=== PATIENT | female | born 1990 | race Caucasian/White ===

== ENCOUNTER 2016-11-26 15:27 | Emergency (ER) | payer OTHER ==
[~2016-11-26 15:27] MED LIST: TRAM50TA PO
[2016-11-26 15:54] VITALS: BP 110/59
[2016-11-26 16:03] LABS: BASO % 1 % (0-3); BILIRUBIN,URINE NEGATIVE (NEG); EOS % 2 % (0-3); GLUCOSE,URINE NEGATIVE (NEG); HEMATOCRIT 33.2 % (36.0-47.0); HEMOGLOBIN 10.3 g/dL (12.0-15.5); LYMPH % 37 % (24-48); MEAN CORPUSCULAR HEMOGLOBIN 24 pg (25-35); MEAN CORPUSCULAR HGB CONC 31 g/dL (31-37); MEAN CORPUSCULAR VOLUME 76 fL (79-100); MONO % 10 % (0-9); NEUT % 51 % (31-73); NITRITE,URINE NEGATIVE (NEG); PH,URINE 6.5; PLATELET COUNT 262 x10^3/uL (140-400); PROTEIN,URINE NEGATIVE (NEG-TRACE); RED BLOOD COUNT 4.39 x10^6/uL (3.50-5.40); RED CELL DISTRIBUTION WIDTH 17.5 % (11.5-14.5); UROBILINOGEN,URINE 0.2 mg/dL (0.2 mg/dL); WHITE BLOOD COUNT 5.5 x10^3/uL (4.0-11.0)
[2016-11-26 16:10] LABS: BACTERIA,URINE MANY /HPF (0-FEW); RBC,URINE 0 /HPF (0-2); SQUAMOUS EPITHELIAL CELL,UR MANY /LPF
[2016-11-26] MEDS ORDERED: FENTANYL PF 100 MCG/2 ML VIAL. IV ONE ×2 (16:15→16:30)
--- NOTE | 2016-11-26 16:20 | PHYS DOC ---
Past Medical History Past Medical History: No Pertinent History Past Surgical History: Tonsillectomy, Other Additional Past Surgical Histo: cleft palate repair Alcohol Use: None Drug Use: None Adult General Chief Complaint Chief Complaint: ABDOMINAL PAIN HPI HPI Patient is a 26 year old female presents to emergency department stating that she is having generalized abdominal pain and discomfort for the last 3 days. She states that she went to her primary care physician yesterday in which she's been treated for staph on her face. She states that she mentioned this to her doctor and he had obtained blood work as well as informing her to come to the emergency department the pain became worse. Patient denies any fever, chills or any nausea or vomiting. She does state that she has some pain with urination. She also states her last bowel movement was 2 days ago. She states that she was currently taking doxycycline for her staph infection. Review of Systems Review of Systems Constitutional: Denies fever or chills [] Eyes: Denies change in visual acuity, redness, or eye pain [] HENT: Denies nasal congestion or sore throat [] Respiratory: Denies cough or shortness of breath [] Cardiovascular: No additional information not addressed in HPI [] GI: abdominal pain, denies nausea, vomiting, bloody stools or diarrhea [] : Denies dysuria or hematuria [] Musculoskeletal: Denies back pain or joint pain [] Integument: Denies rash or skin lesions [] Neurologic: Denies headache, focal weakness or sensory changes [] Current Medications Current Medications Current Medications Medications (Trade) Dose Ordered Sig/Ruby Start Time Stop Time Status Last Admin Dose Admin Fentanyl Citrate (Fentanyl 2ml Vial) 25 mcg 1X ONCE 11/26/16 16:30 11/26/16 16:31 DC 11/26/16 16:17 25 MCG Info (Do NOT chart on this entry -- for MONITORING) 1 each PRN DAILY PRN 11/26/16 16:30 11/28/16 16:29 Iohexol (Omnipaque 300 Mg/ml) 75 ml 1X ONCE 11/26/16 16:30 11/26/16 16:31 DC 11/26/16 16:39 75 ML Ondansetron HCl (Zofran) 4 mg 1X ONCE 11/26/16 16:30 11/26/16 16:31 DC 4/15/17 16:17 4 MG Allergies Allergies Allergies Coded Allergies Type Severity Reaction Last Updated Verified cephalexin Allergy Intermediate 12/13/15 Yes cefdinir Allergy Unknown Hives 11/26/16 Yes Physical Exam Physical Exam Constitutional: Well developed, well nourished, no acute distress, non-toxic appearance. [] HENT: Normocephalic, atraumatic, bilateral external ears normal, oropharynx moist, no oral exudates, nose normal. [] Eyes: PERRLA, EOMI, conjunctiva normal, no discharge. [] Neck: Normal range of motion, no tenderness, supple, no stridor. [] Cardiovascular:Heart rate regular rhythm, no murmur [] Lungs & Thorax: Bilateral breath sounds clear to auscultation [] Abdomen: Bowel sounds normal, soft, right lower quadrant tenderness, patient with tenderness around the umbilicus. No masses, no pulsatile masses. No rebound tenderness noted no guarding noted she does have a positive McBurney sign Skin: Warm, dry, no erythema, no rash. [] Back: No tenderness Extremities: No tenderness, no cyanosis, no clubbing, ROM intact, no edema. [] Neurologic: Alert and oriented X 3, normal motor function, normal sensory function, no focal deficits noted. [] Psychologic: Affect normal, judgement normal, mood normal. [] Current Patient Data Vital Signs Vital Signs Date Time Temp Pulse Resp B/P Pulse Ox O2 Delivery O2 Flow Rate FiO2 11/26/16 16:17 18 11/26/16 15:54 98.1 88 110/59 99 Room Air 98.1 Lab Values Laboratory Tests Test 11/26/16 14:56 11/26/16 15:49 POC Urine HCG, Qualitative Hcg negative (Negative) White Blood Count 5.5x10^3/uL (4.0-11.0) Red Blood Count 4.39x10^6/uL (3.50-5.40) Hemoglobin 10.3g/dL (12.0-15.5) L Hematocrit 33.2% (36.0-47.0) L Mean Corpuscular Volume 76fL (79-100) L Mean Corpuscular Hemoglobin 24pg (25-35) L Mean Corpuscular Hemoglobin Concent 31g/dL (31-37) Red Cell Distribution Width 17.5% (11.5-14.5) H Platelet Count 262x10^3/uL (140-400) Neutrophils (%) (Auto) 51% (31-73) Lymphocytes (%) (Auto) 37% (24-48) Monocytes (%) (Auto) 10% (0-9) H Eosinophils (%) (Auto) 2% (0-3) Basophils (%) (Auto) 1% (0-3) Neutrophils # (Auto) 2.8x10^3uL (1.8-7.7) Lymphocytes # (Auto) 2.0x10^3/uL (1.0-4.8) Monocytes # (Auto) 0.5x10^3/uL (0.0-1.1) Eosinophils # (Auto) 0.1x10^3/uL (0.0-0.7) Basophils # (Auto) 0.0x10^3/uL (0.0-0.2) Urine Collection Type Unknown Urine Color Yellow Urine Clarity Clear Urine pH 6.5 Urine Specific [place] 1.020 Urine Protein Negativemg/dL (NEG-TRACE) Urine Glucose (UA) Negativemg/dL (NEG) Urine Ketones (Stick) Negativemg/dL (NEG) Urine Blood Negative (NEG) Urine Nitrite Negative (NEG) Urine Bilirubin Negative (NEG) Urine Urobilinogen Dipstick 0.2mg/dL (0.2 mg/dL) Urine Leukocyte Esterase Trace (NEG) Urine RBC 0/HPF (0-2) Urine WBC 1-4/HPF (0-4) Urine Squamous Epithelial Cells Many/LPF Urine Bacteria Many/HPF (0-FEW) Urine Mucus Mod/LPF Sodium Level 142mmol/L (136-145) Potassium Level 3.9mmol/L (3.5-5.1) Chloride Level 105mmol/L (98-107) Carbon Dioxide Level 25mmol/L (21-32) Anion Gap 12 (6-14) Blood Urea Nitrogen 13mg/dL (7-20) Creatinine 0.6mg/dL (0.6-1.0) Estimated GFR (Cockcroft-Gault) 122.8 BUN/Creatinine Ratio 22 (6-20) H Glucose Level 93mg/dL (70-99) Calcium Level 9.1mg/dL (8.5-10.1) Total Bilirubin 0.4mg/dL (0.2-1.0) Aspartate Amino Transferase (AST) 17U/L (15-37) Alanine Aminotransferase (ALT) 17U/L (14-59) Alkaline Phosphatase 44U/L (46-116) L Total Protein 7.6g/dL (6.4-8.2) Albumin 4.2g/dL (3.4-5.0) Albumin/Globulin Ratio 1.2 (1.0-1.7) Amylase Level 75U/L (25-115) Lipase 135U/L (73-393) Laboratory Tests 11/26/16 15:49 Laboratory Tests 11/26/16 15:49 EKG EKG [] Radiology/Procedures Radiology/Procedures [] Course & Med Decision Making Course & Med Decision Making Pertinent Labs and Imaging studies reviewed. (See chart for details) Patient's white count was normal. CT scan did not reveal an appendicitis. It did however reveal constipation. Patient hemoglobin and hematocrit was slightly low. She denies any lightheadedness dizziness she denies any blood in her urine denies any blood in her stools. Patient does state she has a follow-up appointment with her primary care physician. She denies having any history of anemia. Patient will also be provided with signs and symptoms to return back to the emergency department in regards to pain in the right lower quadrant area fever chills nausea vomiting. Patient was also encouraged to use the MiraLAX [id number] to help with bowel movement. She will be provided with Macrobid for urinary tract infection. She'll also be provided with Bentyl for abdominal pain and discomfort. Patient be discharged home in stable condition. [] Dragon Disclaimer Dragon Disclaimer This electronic medical record was generated, in whole or in part, using a voice recognition dictation system. Departure Departure Impression: Primary Impression: Abdominal pain Additional Impression: Constipation Disposition: 01 HOME, SELF-CARE Condition: STABLE Referrals: DAVID VILLALOBOS MD (PCP) Patient Instructions: Abdominal Pain (Nonspecific), Constipation, Adult, Easy- to-Read Additional Instructions: You've been evaluated for abdominal pain. Her CT scan shows constipation he was unable to visualize her appendix. Your white count was normal. Here hemoglobin and hematocrit were slightly low. Urine was positive for urinary tract infection although this could be controversial as there appears to be contamination to the urine noted. Medications as prescribed. You may purchase MiraLAX [id number] to help facilitate a bowel movement. Return to the emergency department if he should have any right lower quadrant abdominal pain, fever, chills or any nausea or vomiting. Return to the emergency department as well if he should have any bleeding from the rectal area, any lightheadedness or dizziness. Follow-up to primary care physician in the next week. Return back to emergency department for signs and symptoms of become worse Scripts Dicyclomine Hcl (Bentyl)10 Mg Capsule1 Cap PO TID PRN PAIN #90 CAP Prov:KEMAL COON APRN 11/26/16 Nitrofurantoin Monohyd/M-Cryst (Macrobid 100 Mg Capsule)100 Mg Capsule1 Cap PO BID #14 CAP Prov:KEMAL COON APRN 11/26/16 Problem Qualifiers KEMAL COON APRN Nov 26, 2016 16:19
[2016-11-26 16:24] LABS: CALCIUM 9.1 mg/dL (8.5-10.1); CREATININE 0.6 mg/dL (0.6-1.0); GFR 122.8; POTASSIUM 3.9 mmol/L (3.5-5.1)
[2016-11-26 16:29] LABS: ALBUMIN 4.2 g/dL (3.4-5.0); ALBUMIN/GLOBULIN RATIO 1.2 (1.0-1.7); TOTAL BILIRUBIN 0.4 mg/dL (0.2-1.0); TOTAL PROTEIN 7.6 g/dL (6.4-8.2)
[2016-11-26] MEDS ORDERED: CONTRAST GIVEN MC PRN (16:30)
[2016-11-26] MEDS ORDERED: ONDANSETRON PF 4 MG/2 ML VIAL. IV ONE (16:30)
[2016-11-26] MEDS ORDERED: IOHEXOL 300 MG/ML 75 ML VIAL IV ONE (16:30)
--- NOTE | 2016-11-26 17:08 | RAD ---
PROCEDURE CT of the abdomen and pelvis with contrast HISTORY Right lower quadrant pain for 3 days. TECHNIQUE 75 cc Omnipaque 300 intravenous contrast. No oral contrast per request. Exposure: One or more of the following individualized dose reduction techniques were utilized for this exam: 1. Automated exposure control. 2. Adjustment of the mA and/or kV according to patient size. 3. Use of iterative reconstruction technique. COMPARISON March 16, 2016. FINDINGS Lung bases are clear. Liver and spleen unremarkable. Pancreatic margins are difficult to differentiate from adjacent on opacified bowel but no obvious abnormality. No evidence of adrenal mass. Kidneys appear unremarkable. No calcified gallstone. Aorta is non aneurysmal. No significant lymph node enlargement is identified. Mild common bile duct dilatation, 8 millimeters. This is unchanged from prior study. No evidence of bowel obstruction. Moderate retained stool identified in the colon. Bowel examination may be limited without oral contrast. Difficult to exclude pericolonic inflammation due to the lack of much fat in this young patient. The appendix is not definitely identified. Difficult to exclude localized inflammation due to the lack of peritoneal fat in this patient. Mild free pelvic fluid identified. Limited visualization of the urinary bladder IMPRESSION 1. Constipation. 2. Appendix is not visualized. No obvious acute or inflammatory findings, but detection could be limited due to the lack of much peroneal fat in this patient. If concern persists, consider short-term follow-up CT, particularly after clearing of the colon and oral contrast. 3. Mild free pelvic fluid, could be physiologic. Electronically signed by: Alexis Bolton MD (Nov 26, 2016 17:06:48)
[2016-11-26] MEDS ORDERED: DICY10CA53 PO (17:35)
[2016-11-26] MEDS ORDERED: NITR100C62 PO (17:35)
== END 2016-11-26 18:00 | disposition home or self-care (01) ==
LOC: ER 15:27
DX: R10.31 Right lower quadrant pain (principal); R10.33 Periumbilical pain; K59.00 Constipation, unspecified; Z88.1 Allergy status to other antibiotic agents
CPT/HCPCS: 36415; 74177; 80053; 81001; 81025; 82150; 83690; 85027; 87086; 96374; 96375; 99285; J2405; J3010; Q9967

== ENCOUNTER → 2016-12-06 | Outpatient (CLI) | payer OTHER ==
[2016-11-26 15:54] VITALS: BP 110/59
[~2016-12-06] MED LIST changes: +DICY10CA53 PO; +NITR100C62 PO
--- NOTE | 2016-12-06 10:23 | KCIC ---
PROCEDURE Pelvic sonogram. HISTORY Right lower quadrant pain. TECHNIQUE Trans abdominal sonographic imaging of the pelvis was performed. The patient refused the transvaginal portion of the exam. COMPARISON CT dated 11/26/2016. FINDINGS The uterus measures 8.0 x 4.5 x 4.2 cm. The endometrial stripe measures 3.1 mm. The right ovary measures 3.6 x 2.4 x 1.8 cm. The left ovary measures 3.1 x 2.1 x 2.0 cm. There is normal blood flow within both ovaries. There is a small amount of nonspecific fluid within the posterior cul-de-sac. IMPRESSION 1. Small amount of pelvic free fluid, within physiologic limits for a premenopausal female. 2. Otherwise, relatively unremarkable trans abdominal pelvic sonogram. Electronically signed by: Sera Monique (Dec 06, 2016 10:21:37)
== END | disposition home or self-care (01) ==
LOC: KCIC US 09:55
PROVIDERS: ATTEND Physician Assistant Surgical
DX: R10.31 Right lower quadrant pain (principal)
CPT/HCPCS: 76830; 76856

== ENCOUNTER 2017-03-06 13:52 | Emergency (ER) | payer OTHER ==
[~2017-03-06] VITALS: Ht 157.5 cm; Wt 41.3 kg
[2017-03-06] MEDS ORDERED: ASPIRIN 325 MG TABLET PO ONE (15:00)
[2017-03-06 15:21] LABS: BASO % 1 % (0-3); EOS % 2 % (0-3); HEMOGLOBIN 12.4 g/dL (12.0-15.5); LYMPH # 1.9 x10^3/uL (1.0-4.8); LYMPH % 34 % (24-48); MEAN CORPUSCULAR HEMOGLOBIN 27 pg (25-35); MEAN CORPUSCULAR HGB CONC 33 g/dL (31-37); MEAN CORPUSCULAR VOLUME 84 fL (79-100); MONO % 10 % (0-9); NEUT % 53 % (31-73); PLATELET COUNT 270 x10^3/uL (140-400); RED BLOOD COUNT 4.53 x10^6/uL (3.50-5.40); RED CELL DISTRIBUTION WIDTH 16.3 % (11.5-14.5); WHITE BLOOD COUNT 5.5 x10^3/uL (4.0-11.0)
[2017-03-06 15:32] LABS: INR 1.2 (0.8-1.1); PROTHROMBIN TIME PATIENT 14.2 SEC (11.7-14.0)
[2017-03-06 15:34] LABS: CREATININE 0.6 mg/dL (0.6-1.0); GFR 122.8
[2017-03-06 15:41] LABS: ALBUMIN 4.5 g/dL (3.4-5.0); ALBUMIN/GLOBULIN RATIO 1.5 (1.0-1.7); MAGNESIUM 2.1 mg/dL (1.8-2.4); TOTAL BILIRUBIN 0.4 mg/dL (0.2-1.0); TOTAL PROTEIN 7.6 g/dL (6.4-8.2)
[2017-03-06 15:47] LABS: CKMB MASS 0.7 ng/mL (0.0-3.6)
--- NOTE | 2017-03-06 15:54 | RAD ---
CHEST PA LATERAL Clinical Indication: chest pain Comparison: None. Findings: Hyperinflated lung volumes. Biapical subpleural fibrosis. No focal consolidations. Normal pulmonary vasculature. No pleural effusion or pneumothorax. The cardiomediastinal silhouette and great vessels are normal. No acute osseous abnormality. IMPRESSION: No acute cardiopulmonary process.
--- NOTE | 2017-03-06 16:18 | EKG ---
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
--- NOTE | 2017-03-06 16:19 | PHYS DOC ---
Past Medical History Past Medical History: No Pertinent History Past Surgical History: Tonsillectomy, Other Additional Past Surgical Histo: cleft palate repair Alcohol Use: None Drug Use: None Adult General Chief Complaint Chief Complaint: CHEST WALL PAIN HPI HPI Patient is a 26 year old female who presents with left-sided chest pain radiating to the left lower ribs that began 3 weeks ago. Patient states the pain is at 8 out of 10. She states the pain is intermittent. She states the pain is worse on deep breaths and movement. Patient denies any significant medical history. Denies any chance she is . Denies any coughing or congestion. Denies any urgency frequency or dysuria. Review of Systems Review of Systems Constitutional: Denies fever or chills [] Eyes: Denies change in visual acuity, redness, or eye pain [] HENT: Denies nasal congestion or sore throat [] Respiratory: Denies cough or shortness of breath [] Cardiovascular: Left-sided chest pain GI: Denies abdominal pain, nausea, vomiting, bloody stools or diarrhea [] : Denies dysuria or hematuria [] Musculoskeletal: Denies back pain or joint pain [] Integument: Denies rash or skin lesions [] Neurologic: Denies headache, focal weakness or sensory changes [] Endocrine: Denies polyuria or polydipsia [] Current Medications Current Medications Current Medications Medications (Trade) Dose Ordered Sig/Ruby Start Time Stop Time Status Last Admin Dose Admin Aspirin (Skylar Aspirin) 325 mg 1X ONCE 03/06/17 15:00 03/06/17 15:01 DC 03/06/17 15:01 325 MG Allergies Allergies Allergies Coded Allergies Type Severity Reaction Last Updated Verified cephalexin Allergy Intermediate 12/13/15 Yes cefdinir Allergy Unknown Hives 11/26/16 Yes Physical Exam Physical Exam Constitutional: Well developed, well nourished, no acute distress, non-toxic appearance. [] HENT: Normocephalic, atraumatic, bilateral external ears normal, oropharynx moist, no oral exudates, nose normal. [] Eyes: PERRLA, EOMI, conjunctiva normal, no discharge. [] Neck: Normal range of motion, no tenderness, supple, no stridor. [] Cardiovascular:Heart rate regular rhythm, no murmur [] Lungs & Thorax: Bilateral breath sounds clear to auscultation [] Abdomen: Bowel sounds normal, soft, no tenderness, no masses, no pulsatile masses. [] Skin: Warm, dry, no erythema, no rash. [] Back: No tenderness, no CVA tenderness. [] Extremities: No tenderness, no cyanosis, no clubbing, ROM intact, no edema. [] Neurologic: Alert and oriented X 3, normal motor function, normal sensory function, no focal deficits noted. [] Psychologic: Affect normal, judgement normal, mood normal. [] Current Patient Data Vital Signs Vital Signs Date Time Temp Pulse Resp B/P (MAP) Pulse Ox O2 Delivery O2 Flow Rate FiO2 03/06/17 14:00 98.7 79 18 116/70 (85) 99 Room Air 98.7 Lab Values Laboratory Tests Test 03/06/17 15:06 White Blood Count 5.5 x10^3/uL (4.0-11.0) Red Blood Count 4.53 x10^6/uL (3.50-5.40) Hemoglobin 12.4 g/dL (12.0-15.5) Hematocrit 38.0 % (36.0-47.0) Mean Corpuscular Volume 84 fL (79-100) Mean Corpuscular Hemoglobin 27 pg (25-35) Mean Corpuscular Hemoglobin Concent 33 g/dL (31-37) Red Cell Distribution Width 16.3 % (11.5-14.5) H Platelet Count 270 x10^3/uL (140-400) Neutrophils (%) (Auto) 53 % (31-73) Lymphocytes (%) (Auto) 34 % (24-48) Monocytes (%) (Auto) 10 % (0-9) H Eosinophils (%) (Auto) 2 % (0-3) Basophils (%) (Auto) 1 % (0-3) Neutrophils # (Auto) 2.9 x10^3uL (1.8-7.7) Lymphocytes # (Auto) 1.9 x10^3/uL (1.0-4.8) Monocytes # (Auto) 0.5 x10^3/uL (0.0-1.1) Eosinophils # (Auto) 0.1 x10^3/uL (0.0-0.7) Basophils # (Auto) 0.0 x10^3/uL (0.0-0.2) Prothrombin Time 14.2 SEC (11.7-14.0) H Prothrombin Time INR 1.2 (0.8-1.1) H Sodium Level 142 mmol/L (136-145) Potassium Level 4.0 mmol/L (3.5-5.1) Chloride Level 106 mmol/L (98-107) Carbon Dioxide Level 28 mmol/L (21-32) Anion Gap 8 (6-14) Blood Urea Nitrogen 12 mg/dL (7-20) Creatinine 0.6 mg/dL (0.6-1.0) Estimated GFR (Cockcroft-Gault) 122.8 BUN/Creatinine Ratio 20 (6-20) Glucose Level 92 mg/dL (70-99) Calcium Level 9.0 mg/dL (8.5-10.1) Magnesium Level 2.1 mg/dL (1.8-2.4) Total Bilirubin 0.4 mg/dL (0.2-1.0) Aspartate Amino Transferase (AST) 20 U/L (15-37) Alanine Aminotransferase (ALT) 26 U/L (14-59) Alkaline Phosphatase 55 U/L (46-116) Creatine Kinase 118 U/L (26-192) Creatine Kinase MB (Mass) 0.7 ng/mL (0.0-3.6) Creatine Kinase MB Relative Index 0.6 % (0-4) Troponin I Quantitative < 0.017 ng/mL (0.000-0.055) AR-Etp-Z-Type Natriuretic Peptide 81 pg/mL (0-124) Total Protein 7.6 g/dL (6.4-8.2) Albumin 4.5 g/dL (3.4-5.0) Albumin/Globulin Ratio 1.5 (1.0-1.7) Lipase 127 U/L (73-393) Thyroid Stimulating Hormone (TSH) 1.384 uIU/mL (0.358-3.74) Ethyl Alcohol Level < 10 mg/dL (0-10) Laboratory Tests 03/06/17 15:06 Laboratory Tests 03/06/17 15:06 EKG EKG 16:[address] Reyes sinus rhythm, heart rate 71, QRS interval 78 , no STEMI Radiology/Procedures Radiology/Procedures [] Course & Med Decision Making Course & Med Decision Making Pertinent Labs and Imaging studies reviewed. (See chart for details) This is a 26-year-old female patient who presents with left-sided chest pain that began 3 weeks ago and has been going on intermittently. Patient's labs are negative for any acute findings. Chest x-ray interpreted by radiologist as negative for any acute findings. EKG interpreted by Dr. Reyes sinus rhythm, heart rate 71, QRS interval 78, no STEMI. She has refused to give us urine. Patient's pain is suspicious of musculoskeletal chest pain. Discharged with instructions to take ibuprofen as needed for pain. Provided instructions to follow-up with esthetician/skin therapist as well as PCP. Dragon Disclaimer Dragon Disclaimer This electronic medical record was generated, in whole or in part, using a voice recognition dictation system. Departure Departure Impression: Primary Impression: Chest pain Disposition: 01 HOME, SELF-CARE Condition: STABLE Referrals: UNKNOWN PCP NAME (PCP) PAULO WARD MD follow up in 1-3 days Patient Instructions: Chest Pain (Nonspecific) Additional Instructions: You were seen for chest pain. Your work up is negative for any acute findings. Follow-up with the provided esthetician/skin therapist as well as primary care doctor as soon as possible. Take ibuprofen/tylenol as needed for pain and come back to the ED if symptoms worsen. Problem Qualifiers Primary Impression: Chest pain Chest pain type: unspecified Qualified Codes: R07.9 - Chest pain, unspecified FABIOLA VELASQUEZ APRN Mar 06, 2017 16:19
[2017-03-06 16:25] VITALS: BP 98/52
== END 2017-03-06 16:28 | disposition home or self-care (01) ==
LOC: ER 13:52
DX: R07.9 Chest pain, unspecified (principal); Z88.8 Allergy status to other drugs, medicaments and biological substances; Z88.1 Allergy status to other antibiotic agents
CPT/HCPCS: 36415; 71020; 80053; 82550; 82553; 83690; 83735; 83880; 84443; 84484; 85027; 85610; 93005; 99285; G0480

== ENCOUNTER 2017-05-05 23:34 | Emergency (ER) | payer OTHER ==
[~2017-05-05] VITALS: Ht 157.5 cm; Wt 42.2 kg
[2017-05-05 23:49] VITALS: BP 110/61
--- NOTE | 2017-05-05 23:58 | PHYS DOC ---
Past Medical History Past Medical History: No Pertinent History Past Surgical History: Tonsillectomy, Other Additional Past Surgical Histo: cleft palate repair Alcohol Use: None Drug Use: None Adult General Chief Complaint Chief Complaint: BACK PAIN OR INJURY HPI HPI Patient is a 26 year old female presents emergency department stating that she fell down 4 steps yesterday and today. She states yesterday she fell down the steps will she was carrying the laundry basket. Today she states that she was trying to run and answers to get her close when she fell. She denies any spinal tenderness. She does state the pain is on her left lower back area. She denies any loss of bowel or bladder. Review of Systems Review of Systems Constitutional: Denies fever or chills [] Eyes: Denies change in visual acuity, redness, or eye pain [] HENT: Denies nasal congestion or sore throat [] Respiratory: Denies cough or shortness of breath [] Cardiovascular: No additional information not addressed in HPI [] GI: Denies abdominal pain, nausea, vomiting, bloody stools or diarrhea [] : dysuria denies hematuria [] Musculoskeletal: Left lower back pain Integument: Denies rash or skin lesions [] Neurologic: Denies headache, focal weakness or sensory changes [] Endocrine: Denies polyuria or polydipsia [] Allergies Allergies Allergies Coded Allergies Type Severity Reaction Last Updated Verified cephalexin Allergy Intermediate 12/13/15 Yes cefdinir Allergy Unknown Hives 11/26/16 Yes Physical Exam Physical Exam Constitutional: Well developed, well nourished, no acute distress, non-toxic appearance. [] HENT: Normocephalic, atraumatic, bilateral external ears normal, oropharynx moist, no oral exudates, nose normal. [] Eyes: PERRLA, EOMI, conjunctiva normal, no discharge. [] Neck: Normal range of motion, no tenderness, supple, no stridor. [] Cardiovascular:Heart rate regular rhythm, no murmur [] Lungs & Thorax: Bilateral breath sounds clear to auscultation [] Skin: Warm, dry, no erythema, no rash. [] Back: No cervical spine, thoracic spine or lumbar spine tenderness, no crepitus , no deformities and no step-offs noted. Patient did have tenderness in the left lower back area. Extremities: No tenderness, no cyanosis, no clubbing, ROM intact, no edema. Patient was able to do straight leg raises without any difficulty. Peripheral pulses are 2+ cap refill brisk less than 2 seconds. Patient was able to ambulate with a good steady gait. Neurologic: Alert and oriented X 3, normal motor function, normal sensory function, no focal deficits noted. [] Psychologic: Affect normal, judgement normal, mood normal. [] Current Patient Data Vital Signs Vital Signs Date Time Temp Pulse Resp B/P (MAP) Pulse Ox O2 Delivery O2 Flow Rate FiO2 05/05/17 23:49 98.0 72 18 100 Room Air 98.0 Lab Values Laboratory Tests Test 05/05/17 23:54 05/05/17 23:59 POC Urine HCG, Qualitative Hcg negative (Negative) Urine Collection Type Unknown Urine Color Yellow Urine Clarity Clear Urine pH 6.0 Urine Specific [place] <=1.005 Urine Protein Negative mg/dL (NEG-TRACE) Urine Glucose (UA) Negative mg/dL (NEG) Urine Ketones (Stick) Negative mg/dL (NEG) Urine Blood Moderate (NEG) Urine Nitrite Negative (NEG) Urine Bilirubin Negative (NEG) Urine Urobilinogen Dipstick 0.2 mg/dL (0.2 mg/dL) Urine Leukocyte Esterase Negative (NEG) Urine RBC Occ /HPF (0-2) Urine WBC 0 /HPF (0-4) Urine Squamous Epithelial Cells Occ /LPF Urine Bacteria 0 /HPF (0-FEW) EKG EKG [] Radiology/Procedures Radiology/Procedures [] Course & Med Decision Making Course & Med Decision Making Pertinent Labs and Imaging studies reviewed. (See chart for details) Patient had also stated that she had urinary frequency. Urinalysis was negative. Patient will be discharged home with recommendations for ibuprofen and Tylenol for pain and discomfort. Recommended Flexeril for muscle spasms. She was instructed this medication will cause drowsiness do not take any be alert and oriented. Patient was instructed to use ice packs on 20 minutes off 20 minutes several times a day. Patient will be discharged home in stable condition signs symptoms to return back to emergency department as been provided. [] Dragon Disclaimer Dragon Disclaimer This electronic medical record was generated, in whole or in part, using a voice recognition dictation system. Departure Departure Impression: Primary Impression: Back pain Additional Impression: Fall Disposition: HOME, SELF-CARE Condition: STABLE Referrals: UNKNOWN PCP NAME (PCP) Patient Instructions: Back Pain, Adult, [id number], Fall Prevention and Home Safety, [id number] Additional Instructions: Activity as tolerated Tylenol or Ibuprofen for pain and discomfort Flexeril will cause drowsiness do not take if you need to be alert and oriented Ice packs on 20 minutes and off 20 minutes several times a day Followup with your primary care provider in 7-10 days Return to emergency department as needed for signs and symptoms that become worse. Scripts Cyclobenzaprine Hcl (CYCLOBENZAPRINE HCL) 10 Mg Tablet 1 TAB PO TID Y for MUSCLE SPASMS, #30 TAB Prov: KEMAL COON APRN 05/06/17 Problem Qualifiers Primary Impression: Back pain Back pain location: low back pain Chronicity: unspecified Back pain laterality: left Sciatica presence: without sciatica Qualified Codes: M54.5 - Low back pain Additional Impression: Fall Encounter type: initial encounter Qualified Codes: W19.XXXA - Unspecified fall, initial encounter KEMAL COON APRN May 05, 2017 23:58
[2017-05-06 00:07] LABS: BILIRUBIN,URINE NEGATIVE (NEG); GLUCOSE,URINE NEGATIVE (NEG); NITRITE,URINE NEGATIVE (NEG); PROTEIN,URINE NEGATIVE (NEG-TRACE); UROBILINOGEN,URINE 0.2 mg/dL (0.2 mg/dL)
[2017-05-06] MEDS ORDERED: CYCL10TA2 PO (00:17)
[2017-05-06 00:40] LABS: BACTERIA,URINE 0 /HPF (0-FEW); RBC,URINE OCC /HPF (0-2); SQUAMOUS EPITHELIAL CELL,UR OCC /LPF; WBC,URINE 0 /HPF (0-4)
== END 2017-05-06 00:48 | disposition home or self-care (01) ==
LOC: ER 23:34
DX: M54.2 Cervicalgia (principal); Z88.1 Allergy status to other antibiotic agents; W10.9XXA Fall (on) (from) unspecified stairs and steps, initial encounter; Y93.89 Activity, other specified; Y92.89 Other specified places as the place of occurrence of the external cause; Y99.8 Other external cause status
CPT/HCPCS: 81001; 81025; 99283

== ENCOUNTER 2017-09-09 22:56 | Emergency (ER) | payer OTHER ==
[2017-09-09 23:36] LABS: ADD MAN DIFF? NO
[2017-09-09] MEDS: IV NORMAL SALINE 1000ML BAG 1,000 ML IV ×2 (23:36)
[2017-09-09] MEDS: FAMOTIDINE 20 MG/2 ML VIAL IVP ×2 (23:36)
[2017-09-09 23:38] LABS: BASO % 1 % (0-3); EOS # 0.1 x10^3/uL (0.0-0.7); EOS % 1 % (0-3); HEMATOCRIT 33.8 % (36.0-47.0); HEMOGLOBIN 11.2 g/dL (12.0-15.5); LYMPH # 2.1 x10^3/uL (1.0-4.8); LYMPH % 32 % (24-48); MEAN CORPUSCULAR HEMOGLOBIN 27 pg (25-35); MEAN CORPUSCULAR HGB CONC 33 g/dL (31-37); MEAN CORPUSCULAR VOLUME 82 fL (79-100); MONO # 0.7 x10^3/uL (0.0-1.1); MONO % 11 % (0-9); NEUT # 3.7 x10^3uL (1.8-7.7); NEUT % 56 % (31-73); PLATELET COUNT 229 x10^3/uL (140-400); RED BLOOD COUNT 4.13 x10^6/uL (3.50-5.40); RED CELL DISTRIBUTION WIDTH 15.1 % (11.5-14.5); WHITE BLOOD COUNT 6.6 x10^3/uL (4.0-11.0)
[2017-09-09 23:50] LABS: ANION GAP 9 (6-14); BLOOD UREA NITROGEN 14 mg/dL (7-20); BUN/CREATININE RATIO 23 (6-20); CALCIUM 9.3 mg/dL (8.5-10.1); CARBON DIOXIDE 26 mmol/L (21-32); CHLORIDE 100 mmol/L (98-107); CREATININE 0.6 mg/dL (0.6-1.0); GFR 121.8; GLUCOSE 94 mg/dL (70-99); POTASSIUM 3.5 mmol/L (3.5-5.1); SODIUM 135 mmol/L (136-145)
[2017-09-09 23:58] LABS: ALBUMIN 4.4 g/dL (3.4-5.0); ALBUMIN/GLOBULIN RATIO 1.4 (1.0-1.7); ALK PHOS 52 U/L (46-116); ALT (SGPT) 22 U/L (14-59); AST (SGOT) 21 U/L (15-37); LIPASE 110 U/L (73-393); TOTAL BILIRUBIN 0.4 mg/dL (0.2-1.0); TOTAL PROTEIN 7.6 g/dL (6.4-8.2)
[2017-09-10] MEDS ORDERED: CONTRAST GIVEN MC ×2
[2017-09-10 00:05] LABS: URINE HCG POC HCG NEGATIVE (Negative)
[2017-09-10] MEDS: IOHEXOL 300 MG/ML 100ML VIAL. IV ×2 (00:11)
[2017-09-10 00:26] LABS: BILIRUBIN,URINE NEGATIVE (NEG); CLARITY,URINE CLEAR; COLOR,URINE YELLOW; GLUCOSE,URINE NEGATIVE (NEG); NITRITE,URINE NEGATIVE (NEG); PROTEIN,URINE NEGATIVE (NEG-TRACE); UROBILINOGEN,URINE 0.2 mg/dL (0.2 mg/dL)
[2017-09-10 00:44] LABS: BACTERIA,URINE MODERATE /HPF (0-FEW); RBC,URINE OCC /HPF (0-2); SQUAMOUS EPITHELIAL CELL,UR MANY /LPF
== END 2017-09-10 01:11 | disposition home or self-care (01) ==
LOC: ER 09-10 01:11
DX: N39.0 Urinary tract infection, site not specified (principal); Z88.1 Allergy status to other antibiotic agents; Z88.8 Allergy status to other drugs, medicaments and biological substances
CPT/HCPCS: 36415; 74177; 80053; 81001; 81025; 83690; 85025; 87086; 96361; 96374; 99285-25; J7030; Q9967; S0028

== ENCOUNTER 2017-11-10 01:07 | Emergency (ER) | payer OTHER ==
[2017-11-10] MEDS: IV NORMAL SALINE 1000ML BAG 1,000 ML IV (01:30)
[2017-11-10 01:35] LABS: BILIRUBIN,URINE NEGATIVE (NEG); CLARITY,URINE CLEAR; COLOR,URINE YELLOW; GLUCOSE,URINE NEGATIVE (NEG); NITRITE,URINE NEGATIVE (NEG); PROTEIN,URINE NEGATIVE (NEG-TRACE)
[2017-11-10 01:35] LABS: URINE HCG POC HCG NEGATIVE (Negative)
[2017-11-10 01:41] LABS: BACTERIA,URINE 0 /HPF (0-FEW); SQUAMOUS EPITHELIAL CELL,UR MOD /LPF; WBC,URINE OCC /HPF (0-4)
== END 2017-11-10 02:47 | disposition home or self-care (01) ==
LOC: ER 01:07
DX: R30.0 Dysuria (principal); Z88.1 Allergy status to other antibiotic agents; Z88.8 Allergy status to other drugs, medicaments and biological substances
CPT/HCPCS: 81001; 81025; 99283

== ENCOUNTER 2017-12-17 12:54 | Emergency (ER) | payer OTHER | END 2017-12-17 13:38 | disposition home or self-care (01) | LOC: ER 13:38 | DX: J06.9 Acute upper respiratory infection, unspecified (principal); Z88.1 Allergy status to other antibiotic agents; Z88.8 Allergy status to other drugs, medicaments and biological substances | CPT/HCPCS: 99283 ==

== ENCOUNTER 2018-04-28 12:30 | Emergency (ER) | payer OTHER ==
[~2018-04-28] VITALS: Ht 157.5 cm; Wt 41.3 kg
[~2018-04-28 12:30] MED LIST changes: +BENZ100C PO; +CYCL10TA2 PO; +SULF1TAB24 PO
[2018-04-28 14:11] VITALS: BP 104/53
--- NOTE | 2018-04-28 14:14 | PHYS DOC ---
Past Medical History Past Medical History: No Pertinent History, UTI Past Surgical History: Tonsillectomy, Other Additional Past Surgical Histo: cleft palate repair Alcohol Use: None Drug Use: None Adult General Chief Complaint Chief Complaint: SHOULDER INJURY HPI HPI 27 y/o female presents to ER for c/o mechanical fall yest. at approx. 8:45 p.m. while at work. She reports she slipped in water causing her to fall onto her rt shoulder. She denies striking her head or having any other injury. She reports she took tylenol and ibuprofen with improvement in pain. She denies numbness, tingling, swelling, or inability to perform ROM of rt upper extremity. Review of Systems Review of Systems HENT: Denies head injury Respiratory: Denies shortness of breath [] Cardiovascular: No additional information not addressed in HPI [] GI: Denies abdominal pain, nausea, vomiting : Denies incontinence Musculoskeletal: Denies back/neck pain. Reports rt shoulder pain- denies inability to perform ROM Integument: Reports bruising rt anterior shoulder Neurologic: Denies headache, focal weakness or sensory changes [] All other systems were reviewed and found to be within normal limits, except as documented in this note. Allergies Allergies Allergies Coded Allergies Type Severity Reaction Last Updated Verified cefdinir Allergy Intermediate Hives 11/10/17 Yes cephalexin Allergy Intermediate 12/13/15 Yes Physical Exam Physical Exam Constitutional: Well developed, well nourished, no acute distress, non-toxic appearance. [] HENT: Normocephalic, atraumatic, mucous membranes pink/moist Eyes: PERRLA, no nystagmus, conjunctiva normal, no discharge. [] Neck: Normal range of motion, no midline cervical tenderness, supple, full ROM Cardiovascular:Heart rate regular rhythm, no murmur [] Lungs & Thorax: Bilateral breath sounds clear to auscultation. Resp. equal/ nonlabored. No chest wall tenderness Abdomen: Bowel sounds normal, soft, no tenderness Skin: Warm, dry. Back: No midline spinal tenderness, no CVA tenderness. [] Extremities: Pelvis stable/nontender. Tender to palp. rt anterior shoulder with small bruise- no palp. deformity and pt is able to perform full ROM of rt upper extremity, no cyanosis, no clubbing, ROM intact, no edema. [] Neurologic: Alert and oriented X 3, normal motor function, normal sensory function, no focal deficits noted. [] Psychologic: Affect normal, judgement normal, mood normal. [] Current Patient Data Vital Signs Vital Signs Date Time Temp Pulse Resp B/P (MAP) Pulse Ox O2 Delivery O2 Flow Rate FiO2 04/28/18 14:11 97.6 76 16 104/53 (70) 100 Room Air 97.6 EKG EKG [] Radiology/Procedures Radiology/Procedures PROCEDURE: SHOULDER 2+V RIGHT Right shoulder, 3 views, 04/28/2018: HISTORY: Shoulder pain after a fall No fracture or dislocation is identified. The periarticular soft tissues are unremarkable. IMPRESSION: No acute right shoulder abnormality is detected. Electronically signed by: Dominguez Sethi MD (04/28/2018 2:44 PM) [facility] DICTATED and SIGNED BY: DOMINGUEZ SETHI MD DATE: 04/28/18 1444 Course & Med Decision Making Course & Med Decision Making Pertinent Imaging studies reviewed. (See chart for details) Discussed xray results with pt- no acute findings reported. Discussed plans for sling to rt arm and if sxs persist pt to f/u with orthopedic doctor. Pt remains neuro/vascular intact in rt upper extremity and is in no distress. Education provided on signs and symptoms to return to ER for. Patient was educated on removing sing to perform range of motion multiple times throughout the day. Charge instructions were discussed and per patient's request will provide work note. Dragon Disclaimer Dragon Disclaimer This electronic medical record was generated, in whole or in part, using a voice recognition dictation system. Departure Departure Impression: Primary Impression: Shoulder injury Disposition: 01 HOME, SELF-CARE Condition: STABLE Referrals: NON,STAFF (PCP) Patient Instructions: Arm Sling Use-Brief, Shoulder Sprain Additional Instructions: Wear sling to right arm next 1-2 days take this off and perform light range of motion exercises with right arm. Tylenol and/or ibuprofen as needed for pain as directed on container. Ice packs to affected area every 3-4 hours for 20-30 minutes as needed. If symptoms persist follow-up with orthopedic doctor for further evaluation. JERILYN SHAH APRN Apr 28, 2018 14:14
--- NOTE | 2018-04-28 14:47 | RAD ---
Right shoulder, 3 views, 04/28/2018: HISTORY: Shoulder pain after a fall No fracture or dislocation is identified. The periarticular soft tissues are unremarkable. IMPRESSION: No acute right shoulder abnormality is detected. Electronically signed by: Dominguez Sethi MD (04/28/2018 2:44 PM) [facility]
== END 2018-04-28 15:06 | disposition home or self-care (01) ==
LOC: ER 12:30
DX: S49.91XA Unspecified injury of right shoulder and upper arm, initial encounter (principal); Z88.1 Allergy status to other antibiotic agents; Z88.8 Allergy status to other drugs, medicaments and biological substances; W01.0XXA Fall on same level from slipping, tripping and stumbling without subsequent striking against object, initial encounter; Y93.89 Activity, other specified; Y92.89 Other specified places as the place of occurrence of the external cause; Y99.8 Other external cause status
CPT/HCPCS: 73030; 99284

== ENCOUNTER 2018-07-01 19:49 | Emergency (ER) | payer OTHER ==
[~2018-07-01] VITALS: Ht 157.5 cm; Wt 43.1 kg
[2018-07-01 20:44] VITALS: BP 97/56
[2018-07-01] MEDS ORDERED: ACETAMINOPHEN 500 MG TABLET PO ONE (21:00)
[2018-07-01 21:22] LABS: BILIRUBIN,URINE NEGATIVE (NEG); CLARITY,URINE CLEAR; COLOR,URINE YELLOW; NITRITE,URINE NEGATIVE (NEG); PH,URINE 5.5; PROTEIN,URINE NEGATIVE (NEG-TRACE)
[2018-07-01 21:27] LABS: BACTERIA,URINE FEW /HPF (0-FEW); RBC,URINE 20-40 /HPF (0-2); SQUAMOUS EPITHELIAL CELL,UR FEW /LPF; WBC,URINE OCC /HPF (0-4)
--- NOTE | 2018-07-02 05:44 | PHYS DOC ---
Past Medical History Past Medical History: No Pertinent History, UTI Past Surgical History: Tonsillectomy, Other Additional Past Surgical Histo: cleft palate repair Alcohol Use: None Drug Use: None Adult General Chief Complaint Chief Complaint: ABDOMINAL PAIN HPI HPI Patient is a 28 year old female currently on her menstrual period. Reports sharp intermittent pains to suprapubic region which are migratory. Symptoms feel like menstrual cramps but have been more severe than previous menstrual cramps. Symptoms are currently rated as mild. No ibuprofen, Tylenol medication taken prior to ED arrival. No urinary frequency urgency dysuria. Recent urinary tract infection 2 weeks ago. Patient did complete full course of antibiotics. No fever chills, nausea vomiting or sweats. No flank pain. No other acute symptoms or complaints. Abdominal surgeries[] Review of Systems Review of Systems ROS as per HPI All other systems were reviewed and found to be within normal limits, except as documented in this note. Current Medications Current Medications Current Medications Medications (Trade) Dose Ordered Sig/Ruby Start Time Stop Time Status Last Admin Dose Admin Acetaminophen (Tylenol) 1,000 mg 1X ONCE 07/01/18 21:00 07/01/18 21:01 DC 07/01/18 20:42 1,000 MG Allergies Allergies Allergies Coded Allergies Type Severity Reaction Last Updated Verified cefdinir Allergy Intermediate Hives 11/10/17 Yes cephalexin Allergy Intermediate 12/13/15 Yes Physical Exam Physical Exam Constitutional: Well developed, well nourished, no acute distress, non-toxic appearance. [] HENT: Normocephalic, atraumatic, bilateral external ears normal, oropharynx moist, no oral exudates, nose normal. [] Eyes: PERRLA, EOMI, conjunctiva normal, no discharge. [] Neck: Normal range of motion, no tenderness, supple, no stridor. [] Cardiovascular:Heart rate regular rhythm, no murmur [] Lungs & Thorax: Bilateral breath sounds clear to auscultation [] Abdomen: Bowel sounds normal, soft, no tenderness on repeat exam. [] Skin: Warm, dry, no erythema. [] Back: No tenderness, no CVA tenderness. [] Neurologic: Alert and oriented X 3, normal motor function, normal sensory function, no focal deficits noted. [] Psychologic: Affect normal, judgement normal, mood normal. [] Current Patient Data Vital Signs Vital Signs Date Time Temp Pulse Resp B/P (MAP) Pulse Ox O2 Delivery O2 Flow Rate FiO2 07/01/18 20:44 89 20 97/56 (70) 99 07/01/18 20:05 98.1 Room Air 98.1 Lab Values Laboratory Tests Test 07/01/18 20:47 07/01/18 21:10 POC Urine HCG, Qualitative Hcg negative (Negative) Urine Collection Type Unknown Urine Color Yellow Urine Clarity Clear Urine pH 5.5 Urine Specific [place] >=1.030 Urine Protein Negative mg/dL (NEG-TRACE) Urine Glucose (UA) Negative mg/dL (NEG) Urine Ketones (Stick) Negative mg/dL (NEG) Urine Blood Large (NEG) Urine Nitrite Negative (NEG) Urine Bilirubin Negative (NEG) Urine Urobilinogen Dipstick 1.0 mg/dL (0.2 mg/dL) Urine Leukocyte Esterase Negative (NEG) Urine RBC 20-40 /HPF (0-2) Urine WBC Occ /HPF (0-4) Urine Squamous Epithelial Cells Few /LPF Urine Bacteria Few /HPF (0-FEW) Urine Mucus Mod /LPF EKG EKG [] Radiology/Procedures Radiology/Procedures [] Course & Med Decision Making Course & Med Decision Making Pertinent Labs and Imaging studies reviewed. (See chart for details) [Abdomen remains soft, nontender, nontender. Suspect symptoms related to menstrual cramps. Recommend watchful waiting, supportive care care and PCP follow-up as needed. Return precautions reviewed.] Dragon Disclaimer Dragon Disclaimer This electronic medical record was generated, in whole or in part, using a voice recognition dictation system. Departure Departure Impression: Primary Impression: Lower abdominal pain Additional Impression: Dysmenorrhea Disposition: 01 HOME, SELF-CARE Condition: GOOD Patient Instructions: Abdominal Pain (Nonspecific) Additional Instructions: You were evaluated in the emergency department for lower abdominal pain. A urinalysis and tests were performed and are negative. The exact cause of your pain has not been determined. Please take Tylenol or ibuprofen for pain and follow-up with your PCP in 1-2 days for reevaluation. If you develop new or worsening symptoms, return to the emergency department. Problem Qualifiers BERTIN VICENTE DO Jul 02, 2018 05:44
== END 2018-07-01 21:46 | disposition home or self-care (01) ==
LOC: ER 19:49
DX: N94.6 Dysmenorrhea, unspecified (principal); R10.30 Lower abdominal pain, unspecified; Z87.440 Personal history of urinary (tract) infections; Z88.1 Allergy status to other antibiotic agents; Z88.8 Allergy status to other drugs, medicaments and biological substances
CPT/HCPCS: 81001; 81025; 99284

== ENCOUNTER 2018-07-12 21:17 | Emergency (ER) | payer OTHER ==
[~2018-07-12] VITALS: Ht 157.5 cm; Wt 41.7 kg
[2018-07-12 21:34] VITALS: BP 108/72
[2018-07-12] MEDS ORDERED: MUPI22OI2 TP (21:44)
--- NOTE | 2018-07-13 03:23 | PHYS DOC ---
Past Medical History Past Medical History: No Pertinent History, UTI Past Surgical History: Tonsillectomy, Other Additional Past Surgical Histo: cleft palate repair Alcohol Use: None Drug Use: None Adult General Chief Complaint Chief Complaint: WOUND CHECK HPI HPI Patient is a 28 year old female who presents with a picking sore to right cheek after patient patient prodding at a pimple. No other symptoms and plans. Denies history of MRSA. On exam, the patient has a 5-10 mm superficial deroofed pimple without induration or drainage. No surrounding cellulitis. [] Review of Systems Review of Systems Review symptoms as per history of present illness. All other systems were reviewed and found to be within normal limits, except as documented in this note. Allergies Allergies Allergies Coded Allergies Type Severity Reaction Last Updated Verified cefdinir Allergy Intermediate Hives 11/10/17 Yes cephalexin Allergy Intermediate 12/13/15 Yes Physical Exam Physical Exam Constitutional: Well developed, well nourished, no acute distress, non-toxic appearance. [] HENT: Normocephalic, atraumatic, 5 mm de-roofed couple to right cheek, no induration, was surrounding cellulitis, oropharynx moist, no oral exudates, nose normal. [] Eyes: PERRLA, EOMI, conjunctiva normal, no discharge. [] Neurologic: Alert and oriented X 3, normal motor function, normal sensory function, no focal deficits noted. [] Psychologic: Affect normal, judgement normal, mood normal. [] Current Patient Data Vital Signs Vital Signs Date Time Temp Pulse Resp B/P (MAP) Pulse Ox O2 Delivery O2 Flow Rate FiO2 07/12/18 21:34 97.7 78 14 108/72 (84) 100 Room Air 97.7 EKG EKG [] Radiology/Procedures Radiology/Procedures [] Course & Med Decision Making Course & Med Decision Making Pertinent Labs and Imaging studies reviewed. (See chart for details) [Patient reassured. ] Dragon Disclaimer Dragon Disclaimer This electronic medical record was generated, in whole or in part, using a voice recognition dictation system. Departure Departure Impression: Primary Impression: Cutaneous abscess of face Disposition: HOME, SELF-CARE Condition: GOOD Patient Instructions: Abscess, [id number] Additional Instructions: Please avoid picking sore on left cheek. Apply topical antibiotic as directed. Follow up with your PCP as needed for recheck. Scripts Mupirocin (MUPIROCIN OINTMENT) 22 Gm Oint...g. 1 SUMA TP TID for WOUND CARE, #1 TUBE Prov: BERTIN VICENTE DO 07/12/18 BERTIN VICENTE DO Jul 13, 2018 03:22
== END 2018-07-12 21:49 | disposition home or self-care (01) ==
LOC: ER 21:17
DX: L02.01 Cutaneous abscess of face (principal); Z88.1 Allergy status to other antibiotic agents; Z88.8 Allergy status to other drugs, medicaments and biological substances
CPT/HCPCS: 99283

== ENCOUNTER 2019-03-25 21:52 | Emergency (ER) | payer OTHER ==
[~2019-03-25] VITALS: Ht 157.5 cm; Wt 39.5 kg
[~2019-03-25 21:52] MED LIST changes: +MUPI22OI2 TP
[2019-03-25 23:11] LABS: BILIRUBIN,URINE SMALL (NEG); CLARITY,URINE CLEAR; COLOR,URINE YELLOW; NITRITE,URINE NEGATIVE (NEG); PH,URINE 5.5; PROTEIN,URINE NEGATIVE (NEG-TRACE); UROBILINOGEN,URINE 0.2 mg/dL (0.2 mg/dL)
[2019-03-25 23:15] LABS: BACTERIA,URINE MANY /HPF (0-FEW); RBC,URINE OCC /HPF (0-2); SQUAMOUS EPITHELIAL CELL,UR MANY /LPF
--- NOTE | 2019-03-25 23:36 | PHYS DOC ---
Past Medical History Past Medical History: Anemia, UTI Past Surgical History: Tonsillectomy, Other Additional Past Surgical Histo: cleft palate repair Alcohol Use: None Drug Use: None Adult General Chief Complaint Chief Complaint: ABDOMINAL PAIN HPI HPI Patient is a 28 year old female who presents with since Monday patient has seen 2 tender bumps appear just below the umbilicus to the right side. Patient rates her pain an 8 out of 10 and has been taking ibuprofen is not helping. Patient states she also has a type of skin wound that she has been seen for by her primary care Doctor and it Has been there for over a month and she currently has a appointment next month for this. Review of Systems Review of Systems Constitutional: Denies fever or chills [] Eyes: Denies change in visual acuity, redness, or eye pain [] HENT: Denies nasal congestion or sore throat [] Respiratory: Denies cough or shortness of breath [] Cardiovascular: No additional information not addressed in HPI [] GI: abdominal pain, denies nausea, vomiting, bloody stools or diarrhea [] : Denies dysuria or hematuria [] Musculoskeletal: Denies back pain or joint pain [] Integument: two raised tender bumps below umbilicus. Denies rash or skin lesions [] Neurologic: Denies headache, focal weakness or sensory changes [] Endocrine: Denies polyuria or polydipsia [] All other systems were reviewed and found to be within normal limits, except as documented in this note. Current Medications Current Medications Current Medications Medications (Trade) Dose Ordered Sig/Ruby Start Time Stop Time Status Last Admin Dose Admin Acetaminophen/ Hydrocodone Bitart (Lortab 5/325) 1 tab 1X ONCE 03/25/19 23:45 03/25/19 23:46 DC 03/26/19 00:03 1 TAB Info (CONTRAST GIVEN -- Rx MONITORING) 1 each PRN DAILY PRN 03/26/19 00:30 03/28/19 00:29 Iohexol (Omnipaque 300 Mg/ml) 75 ml 1X ONCE 03/26/19 00:30 03/26/19 00:31 DC 03/26/19 00:24 75 ML Sodium Chloride 1,000 ml @ 1,000 mls/hr Q1H 03/25/19 23:45 03/26/19 00:44 DC 03/26/19 00:03 1,000 MLS/HR Allergies Allergies Allergies Coded Allergies Type Severity Reaction Last Updated Verified cefdinir Allergy Intermediate Hives 11/10/17 Yes cephalexin Allergy Intermediate 12/13/15 Yes doxycycline Allergy Unknown nausea/vomiting 03/25/19 Yes Physical Exam Physical Exam Constitutional: Well developed, well nourished, no acute distress, non-toxic appearance. [] HENT: Normocephalic, atraumatic, bilateral external ears normal, oropharynx moist, no oral exudates, nose normal. [] Eyes: PERRLA, EOMI, conjunctiva normal, no discharge. [] Neck: Normal range of motion, no tenderness, supple, no stridor. [] Cardiovascular:Heart rate regular rhythm, no murmur [] Lungs & Thorax: Bilateral breath sounds clear to auscultation [] Abdomen: Bowel sounds normal, soft, Two raised tender bumps tenderness, no masses, no pulsatile masses. [] Skin: Skin lesion directly to right of umbilicus. Warm, dry, no erythema, no rash. [] Back: No tenderness, no CVA tenderness. [] Extremities: No tenderness, no cyanosis, no clubbing, ROM intact, no edema. [] Neurologic: Alert and oriented X 3, normal motor function, normal sensory function, no focal deficits noted. [] Psychologic: Affect normal, judgement normal, mood normal. [] Current Patient Data Vital Signs Vital Signs Date Time Temp Pulse Resp B/P (MAP) Pulse Ox O2 Delivery O2 Flow Rate FiO2 03/26/19 00:03 14 100 03/25/19 22:20 98.2 77 101/58 (72) Room Air 98.2 Lab Values Laboratory Tests Test 03/25/19 22:59 03/25/19 23:04 03/25/19 23:35 Urine Collection Type Unknown Urine Color Yellow Urine Clarity Clear Urine pH 5.5 Urine Specific [place] >=1.030 Urine Protein Negative mg/dL (NEG-TRACE) Urine Glucose (UA) Negative mg/dL (NEG) Urine Ketones (Stick) Negative mg/dL (NEG) Urine Blood Trace (NEG) Urine Nitrite Negative (NEG) Urine Bilirubin Small (NEG) Urine Urobilinogen Dipstick 0.2 mg/dL (0.2 mg/dL) Urine Leukocyte Esterase Negative (NEG) Urine RBC Occ /HPF (0-2) Urine WBC 1-4 /HPF (0-4) Urine Squamous Epithelial Cells Many /LPF Urine Bacteria Many /HPF (0-FEW) Urine Mucus Marked /LPF POC Urine HCG, Qualitative Hcg negative (Negative) White Blood Count 5.5 x10^3/uL (4.0-11.0) Red Blood Count 4.13 x10^6/uL (3.50-5.40) Hemoglobin 11.0 g/dL (12.0-15.5) L Hematocrit 33.3 % (36.0-47.0) L Mean Corpuscular Volume 81 fL (79-100) Mean Corpuscular Hemoglobin 27 pg (25-35) Mean Corpuscular Hemoglobin Concent 33 g/dL (31-37) Red Cell Distribution Width 15.3 % (11.5-14.5) H Platelet Count 287 x10^3/uL (140-400) Neutrophils (%) (Auto) 46 % (31-73) Lymphocytes (%) (Auto) 40 % (24-48) Monocytes (%) (Auto) 11 % (0-9) H Eosinophils (%) (Auto) 2 % (0-3) Basophils (%) (Auto) 1 % (0-3) Neutrophils # (Auto) 2.5 x10^3/uL (1.8-7.7) Lymphocytes # (Auto) 2.2 x10^3/uL (1.0-4.8) Monocytes # (Auto) 0.6 x10^3/uL (0.0-1.1) Eosinophils # (Auto) 0.1 x10^3/uL (0.0-0.7) Basophils # (Auto) 0.0 x10^3/uL (0.0-0.2) Sodium Level 142 mmol/L (136-145) Potassium Level 3.6 mmol/L (3.5-5.1) Chloride Level 104 mmol/L (98-107) Carbon Dioxide Level 29 mmol/L (21-32) Anion Gap 9 (6-14) Blood Urea Nitrogen 14 mg/dL (7-20) Creatinine 0.6 mg/dL (0.6-1.0) Estimated GFR (Cockcroft-Gault) 120.8 BUN/Creatinine Ratio 23 (6-20) H Glucose Level 94 mg/dL (70-99) Calcium Level 9.4 mg/dL (8.5-10.1) Total Bilirubin 0.2 mg/dL (0.2-1.0) Aspartate Amino Transferase (AST) 18 U/L (15-37) Alanine Aminotransferase (ALT) 22 U/L (14-59) Alkaline Phosphatase 48 U/L (46-116) Total Protein 7.6 g/dL (6.4-8.2) Albumin 4.3 g/dL (3.4-5.0) Albumin/Globulin Ratio 1.3 (1.0-1.7) Lipase 159 U/L (73-393) Laboratory Tests 03/25/19 23:35 Laboratory Tests 03/25/19 23:35 EKG EKG [] Radiology/Procedures Radiology/Procedures [] Impressions: [facility] [address] [place] [address] IMAGING REPORT Signed PATIENT: KRISHNA TAYLOR ACCOUNT: [id number] : 1990 LOCATION: ER AGE: 28 SEX: F EXAM STATUS: REG ER ORD. PHYSICIAN: KEMAL SMITH APRN REASON: pain, lymph nodes palpable PROCEDURE: CT ABD PELV W/ IV CONTRST ONLY CT abdomen pelvis with contrast dated 03/26/2019. Comparison made to 09/10/2017. CLINICAL INDICATION: Pain. Palpable lymph node. TECHNIQUE: Contiguous axial imaging the abdomen and pelvis performed following the intravenous administration of iodinated contrast. One or more of the following individualized dose reduction techniques were utilized for this examination: 1. Automated exposure control 2. Adjustment of the mA and/or kV according to patient size 3. Use of iterative reconstruction technique. FINDINGS: Limited images of lung bases are clear. Heart size within normal limits. No pleural or pericardial effusion. Liver and spleen are homogeneous. No apparent hepatic mass. Mild intrahepatic and extra hepatic biliary ductal dilatation for patient's age. The common bile duct measures 6 mm diameter. Findings are stable from prior study. No intraductal filling defect. Gallbladder unremarkable. Pancreas, adrenal glands and kidneys are unremarkable. No hydronephrosis. Unopacified GI tract normal in caliber and contour. No focal bowel wall thickening. No inflammatory changes in the mesentery. Appendix normal in caliber. No ascites or lymphadenopathy. Abdominal aorta normal in caliber. Images of pelvis show nondistended urinary bladder. Uterus and adnexa are unremarkable. Small amount of free pelvic fluid. No pelvic lymphadenopathy. Bone windows show no acute findings. Mild multilevel spondylosis. IMPRESSION: 1. No acute abnormality of abdomen or pelvis. Normal appendix. 2. Mild prominence of the intrahepatic and extra hepatic biliary tree, nonspecific but unchanged from prior study. Recommend correlation with laboratory results. 3. Small amount of free pelvic fluid, nonspecific. Electronically signed by: Alexis Romero MD (03/26/2019 12:48 AM) [facility] DICTATED and SIGNED BY: ALEXIS ROMERO MD DATE: 03/26/19 0048 Course & Med Decision Making Course & Med Decision Making Patient is a 28 year old female who presents with since Monday patient has seen 2 tender bumps appear just below the umbilicus to the right side. Patient rates her pain an 8 out of 10 and has been taking ibuprofen is not helping. Patient states she also has a type of skin wound that she has been seen for by her primary care Doctor and it Has been there for over a month and she currently has a appointment next month for this. Alert and oriented. Skin pink warm and dry. Mucous membranes moist. Patient denies nausea, vomiting, dysuria, chest pain, shortness of air, fever, dizziness, vaginal discharge. Patient states she just got off her menstrual period. Patient's abdomen is soft tender with 2 what appears to be lymph nodes that are palpable to the right just below her umbilicus and just below the skin pink nondraining skin wound. The area is pink with what looks like open blisters and dry skin. Patient states she has been seen by her primary care doctor for this and she has an appointment next month with dermatology. Patient states it is unchanged in the last month. States on Monday to bumps that are tender began. Lungs are clear to auscultation in all lobes. Heart rate regular without murmur. Afebrile. The bilateral inspiratory with a steady gait. No extremity swelling. Patient denies any other symptoms. Urinalysis is negative and is negative. Blood work unremarkable. CT ABD PELV shows: 1. No acute abnormality of abdomen or pelvis. Normal appendix. 2. Mild prominence of the intrahepatic and extra hepatic biliary tree, nonspecific but unchanged from prior study. Recommend correlation with laboratory results. 3. Small amount of free pelvic fluid, nonspecific. Differential diagnosis is enlarged lymph nodes. Patient will be treated with a medrol dose pack and pain medication. Patient to follow up with primary care provider. Papi Disclaimer Dragon Disclaimer This electronic medical record was generated, in whole or in part, using a voice recognition dictation system. Departure Departure Impression: Primary Impression: Abdominal pain Disposition: HOME, SELF-CARE Condition: STABLE Referrals: DALIA PAREDES MD (PCP) Patient Instructions: Abdominal Pain (Nonspecific) Additional Instructions: Follow up with primary care provider if not getting better. Take medications as prescribed. Scripts Hydrocodone/Apap 5-325 (NORCO 5-325 TABLET) 1 Each Tablet 1 TAB PO PRN Q6HRS PRN for PAIN, #10 TAB 0 Refills Prov: KEMAL SMITH APRN 03/26/19 Methylprednisolone (MEDROL) 4 Mg Tab.ds.pk 1 PKG PO UD, #1 PKG Prov: KEMAL SMITH APRN 03/26/19 Problem Qualifiers Primary Impression: Abdominal pain Abdominal location: unspecified location Qualified Codes: R10.9 - Unspecified abdominal pain KEMAL SMITH APRN Mar 25, 2019 23:36
[2019-03-25] MEDS ORDERED: IV NORMAL SALINE 1000ML BAG 1,000 ML IV SCH (23:45)
[2019-03-25] MEDS ORDERED: HYDROcodone/APAP 5/325MG 1 TAB TABLET PO ONE (23:45)
[2019-03-25 23:51] LABS: BASO % 1 % (0-3); EOS # 0.1 x10^3/uL (0.0-0.7); EOS % 2 % (0-3); HEMATOCRIT 33.3 % (36.0-47.0); LYMPH # 2.2 x10^3/uL (1.0-4.8); LYMPH % 40 % (24-48); MEAN CORPUSCULAR HEMOGLOBIN 27 pg (25-35); MEAN CORPUSCULAR HGB CONC 33 g/dL (31-37); MEAN CORPUSCULAR VOLUME 81 fL (79-100); MONO # 0.6 x10^3/uL (0.0-1.1); MONO % 11 % (0-9); NEUT # 2.5 x10^3/uL (1.8-7.7); NEUT % 46 % (31-73); PLATELET COUNT 287 x10^3/uL (140-400); RED BLOOD COUNT 4.13 x10^6/uL (3.50-5.40); RED CELL DISTRIBUTION WIDTH 15.3 % (11.5-14.5); WHITE BLOOD COUNT 5.5 x10^3/uL (4.0-11.0)
[2019-03-25 23:57] LABS: CALCIUM 9.4 mg/dL (8.5-10.1); CREATININE 0.6 mg/dL (0.6-1.0); GFR 120.8; POTASSIUM 3.6 mmol/L (3.5-5.1)
[2019-03-26 00:03] LABS: ALBUMIN 4.3 g/dL (3.4-5.0); ALBUMIN/GLOBULIN RATIO 1.3 (1.0-1.7); TOTAL BILIRUBIN 0.2 mg/dL (0.2-1.0); TOTAL PROTEIN 7.6 g/dL (6.4-8.2)
[2019-03-26] MEDS ORDERED: CONTRAST GIVEN. MC PRN (00:30)
[2019-03-26] MEDS ORDERED: IOHEXOL 300 MG/ML 100ML VIAL. IV ONE (00:30)
--- NOTE | 2019-03-26 00:51 | RAD ---
CT abdomen pelvis with contrast dated 03/26/2019. Comparison made to 09/10/2017. CLINICAL INDICATION: Pain. Palpable lymph node. TECHNIQUE: Contiguous axial imaging the abdomen and pelvis performed following the intravenous administration of iodinated contrast. One or more of the following individualized dose reduction techniques were utilized for this examination: 1. Automated exposure control 2. Adjustment of the mA and/or kV according to patient size 3. Use of iterative reconstruction technique. FINDINGS: Limited images of lung bases are clear. Heart size within normal limits. No pleural or pericardial effusion. Liver and spleen are homogeneous. No apparent hepatic mass. Mild intrahepatic and extra hepatic biliary ductal dilatation for patient's age. The common bile duct measures 6 mm diameter. Findings are stable from prior study. No intraductal filling defect. Gallbladder unremarkable. Pancreas, adrenal glands and kidneys are unremarkable. No hydronephrosis. Unopacified GI tract normal in caliber and contour. No focal bowel wall thickening. No inflammatory changes in the mesentery. Appendix normal in caliber. No ascites or lymphadenopathy. Abdominal aorta normal in caliber. Images of pelvis show nondistended urinary bladder. Uterus and adnexa are unremarkable. Small amount of free pelvic fluid. No pelvic lymphadenopathy. Bone windows show no acute findings. Mild multilevel spondylosis. IMPRESSION: 1. No acute abnormality of abdomen or pelvis. Normal appendix. 2. Mild prominence of the intrahepatic and extra hepatic biliary tree, nonspecific but unchanged from prior study. Recommend correlation with laboratory results. 3. Small amount of free pelvic fluid, nonspecific. Electronically signed by: Alexis Romero MD (03/26/2019 12:48 AM) [facility]
[2019-03-26] MEDS ORDERED: METH4TAB2 PO (00:57)
[2019-03-26] MEDS ORDERED: HYDR-3164 PO (00:57)
[2019-03-26 01:29] VITALS: BP 96/55
[2019-03-26] MEDS ORDERED: IOHEXOL 300 MG/ML 100ML VIAL. ONE (05:18)
== END 2019-03-26 01:30 | disposition home or self-care (01) ==
LOC: ER 21:52
DX: R10.33 Periumbilical pain (principal); L98.9 Disorder of the skin and subcutaneous tissue, unspecified; Z90.89 Acquired absence of other organs; Z88.1 Allergy status to other antibiotic agents
CPT/HCPCS: 36415; 74177; 80053; 81001; 81025; 83690; 85025; 87086; 99285; J7030; Q9967

== ENCOUNTER 2019-09-06 10:27 | Emergency (ER) | payer MEDICARE, OTHER ==
[~2019-09-06] VITALS: Ht 157.5 cm; Wt 39.0 kg
[~2019-09-06 10:27] MED LIST changes: +HYDR-3164 PO; +METH4TAB2 PO
[2019-09-06 10:48] VITALS: BP 109/55
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
== END 2019-09-06 12:50 | disposition home or self-care (01) ==
LOC: ER 10:27
DX: S13.9XXA Sprain of joints and ligaments of unspecified parts of neck, initial encounter (principal); M25.512 Pain in left shoulder; R07.89 Other chest pain; Z90.89 Acquired absence of other organs; Z98.890 Other specified postprocedural states; Z88.1 Allergy status to other antibiotic agents; V89.2XXA Person injured in unspecified motor-vehicle accident, traffic, initial encounter; Y93.89 Activity, other specified; Y92.413 State road as the place of occurrence of the external cause; Y99.8 Other external cause status
CPT/HCPCS: 71046; 72125; 73030; 81025; 99284

== ENCOUNTER 2020-02-18 15:06 | Emergency (ER) | payer MEDICARE, OTHER ==
[~2020-02-18] VITALS: Ht 157.5 cm; Wt 45.0 kg
[2020-02-18 16:10] VITALS: BP 131/61
[2020-02-18 16:21] LABS: BILIRUBIN,URINE MODERATE (NEG); CLARITY,URINE TURBID; COLOR,URINE RED; NITRITE,URINE NEGATIVE (NEG); PROTEIN,URINE 100 mg/dL (NEG-TRACE); UROBILINOGEN,URINE 0.2 mg/dL (0.2 mg/dL)
[2020-02-18 16:32] LABS: BACTERIA,URINE MODERATE /HPF (0-FEW); RBC,URINE TNTC /HPF (0-2); WBC,URINE >40 /HPF (0-4)
[2020-02-18] MEDS ORDERED: SULF1TAB24 PO (17:14)
--- NOTE | 2020-02-18 17:14 | PHYS DOC ---
Past Medical History Past Medical History: Anemia, UTI Past Surgical History: Tonsillectomy, Other Additional Past Surgical Histo: cleft palate repair Smoking Status: Never Smoker Alcohol Use: None Drug Use: None General Adult EDM: Chief Complaint: URINARY FREQUENCY HPI: HPI: Patient is a 29 year old female who presented to ER today for evaluation of frequent urination and pain with urination for a week. Patient denies any fever, no nausea vomiting. Patient denies any abdominal pain, no vaginal bleeding or discharge. Review of Systems: Review of Systems: Constitutional: Denies fever or chills. [] Eyes: Denies change in visual acuity. [] HENT: Denies nasal congestion or sore throat. [] Respiratory: Denies cough or shortness of breath. [] Cardiovascular: Denies chest pain or edema. [] GI: Denies abdominal pain, nausea, vomiting, bloody stools or diarrhea. [] : Positive for dysuria and frequency. Musculoskeletal: Denies back pain or joint pain. [] Integument: Denies rash. [] Neurologic: Denies headache, focal weakness or sensory changes. [] Endocrine: Denies polyuria or polydipsia. [] Lymphatic: Denies swollen glands. [] Psychiatric: Denies depression or anxiety. [] Heart Score: Risk Factors: Risk Factors: DM, Current or recent (<one month) smoker, HTN, HLP, family history of CAD, obesity. Risk Scores: Score 0 - 3: 2.5% MACE over next 6 weeks - Discharge Home Score 4 - 6: 20.3% MACE over next 6 weeks - Admit for Clinical Observation Score 7 - 10: 72.7% MACE over next 6 weeks - Early Invasive Strategies Allergies: Allergies: Allergies Coded Allergies Type Severity Reaction Last Updated Verified cefdinir Allergy Intermediate Hives 11/10/17 Yes cephalexin Allergy Intermediate 12/13/15 Yes doxycycline Allergy Unknown nausea/vomiting 03/25/19 Yes Physical Exam: PE: Constitutional: Well developed, well nourished, no acute distress, non-toxic appearance. [] HENT: Normocephalic, atraumatic, bilateral external ears normal, oropharynx moist, no oral exudates, nose normal. [] Eyes: PERRLA, EOMI, conjunctiva normal, no discharge. [] Neck: Normal range of motion, no tenderness, supple, no stridor. [] Cardiovascular:Heart rate regular rhythm, no murmur [] Lungs & Thorax: Bilateral breath sounds clear to auscultation [] Abdomen: Bowel sounds normal, soft, no tenderness, no masses, no pulsatile masses. [] Skin: Warm, dry, no erythema, no rash. [] Back: No tenderness, no CVA tenderness. [] Extremities: No tenderness, no cyanosis, no clubbing, ROM intact, no edema. [] Neurologic: Alert and oriented X 3, normal motor function, normal sensory function, no focal deficits noted. [] Psychologic: Affect normal, judgement normal, mood normal. [] Current Patient Data: Labs: Laboratory Tests Test 02/18/20 16:00 02/18/20 16:16 Urine Collection Type Unknown Urine Color Red Urine Clarity Turbid Urine pH 5.0 (<5.0-8.0) Urine Specific Diggs 1.020 (1.000-1.030) Urine Protein 100 mg/dL (NEG-TRACE) Urine Glucose (UA) Negative mg/dL (NEG) Urine Ketones (Stick) 15 mg/dL (NEG) Urine Blood Large (NEG) Urine Nitrite Negative (NEG) Urine Bilirubin Moderate (NEG) Urine Urobilinogen Dipstick 0.2 mg/dL (0.2 mg/dL) Urine Leukocyte Esterase Moderate (NEG) Urine RBC Tntc /HPF (0-2) Urine WBC >40 /HPF (0-4) Urine Squamous Epithelial Cells None /LPF Urine Bacteria Moderate /HPF (0-FEW) POC Urine HCG, Qualitative Hcg negative (Negative) Vital Signs: Vital Signs Date Time Temp Pulse Resp B/P (MAP) Pulse Ox O2 Delivery O2 Flow Rate FiO2 02/18/20 16:10 98.9 87 16 131/61 (84) 98 98.9 EKG: EKG: [] Radiology/Procedures: Radiology/Procedures: [] Course & Med Decision Making: Course & Med Decision Making Pertinent Labs and Imaging studies reviewed. (See chart for details) [] Dragon Disclaimer: Dragon Disclaimer: This electronic medical record was generated, in whole or in part, using a voice recognition dictation system. Departure Departure Impression: Primary Impression: UTI (urinary tract infection) Disposition: 01 HOME, SELF-CARE Condition: IMPROVED Referrals: DALIA PAREDES MD (PCP) PLEASE CALL YOUR DOCTOR FOR FOLLOW UP THIS WEEK IF NOT GETTING BETTER Patient Instructions: Urinary Tract Infection Scripts Sulfamethoxazole/Trimethoprim (BACTRIM DS TABLET) 1 Each Tablet 1 TAB PO BID for 10 Days, #20 TAB 0 Refills Prov: TIM PEDRAZA DO 02/18/20 Justicifation of Admission Dx: Justifications for Admission: Justification of Admission Dx: N/A TIM PEDRAZA DO Feb 18, 2020 17:14
== END 2020-02-18 17:42 | disposition home or self-care (01) ==
LOC: ER 15:06
DX: N39.0 Urinary tract infection, site not specified (principal); R35.0 Frequency of micturition; R30.0 Dysuria; Z90.89 Acquired absence of other organs; Z98.890 Other specified postprocedural states; Z88.6 Allergy status to analgesic agent; Z88.8 Allergy status to other drugs, medicaments and biological substances
CPT/HCPCS: 81001; 81025; 87086; 99283

== ENCOUNTER 2020-04-03 10:08 | Emergency (ER) | payer MEDICARE, OTHER ==
[~2020-04-03] VITALS: Ht 157.5 cm; Wt 41.0 kg
--- NOTE | 2020-04-03 10:22 | PHYS DOC ---
Past Medical History Past Medical History: Anemia, UTI Past Surgical History: Tonsillectomy, Other Additional Past Surgical Histo: cleft palate repair Smoking Status: Never Smoker Alcohol Use: None Drug Use: None General Adult EDM: Chief Complaint: Left thumb injury HPI: HPI: Patient is a 29 year old female who presents with a left thumb and hand pain. Patient was playing football when the ball hit her left thumb last night. Patient is a left-handed female. Patient describes a throbbing pain on the left thenar eminence into her left thumb. Pain is worse with range of motion pain is moderate in intensity but worse with palpation. Patient has limited range of motion of the thumb but sensation appears intact. Review of Systems: Review of Systems: Constitutional: Denies fever or chills. [] Eyes: Denies change in visual acuity. [] HENT: Denies nasal congestion or sore throat. [] Respiratory: Denies cough or shortness of breath. [] Cardiovascular: Denies chest pain or edema. [] GI: Denies abdominal pain, nausea, vomiting, bloody stools or diarrhea. [] : Denies dysuria. [] Musculoskeletal: Denies back pain but complains of left thumb pain Integument: Denies rash. [] Neurologic: Denies headache, focal weakness or sensory changes. [] Endocrine: Denies polyuria or polydipsia. [] Lymphatic: Denies swollen glands. [] Psychiatric: Denies depression or anxiety. [] Heart Score: Risk Factors: Risk Factors: DM, Current or recent (<one month) smoker, HTN, HLP, family history of CAD, obesity. Risk Scores: Score 0 - 3: 2.5% MACE over next 6 weeks - Discharge Home Score 4 - 6: 20.3% MACE over next 6 weeks - Admit for Clinical Observation Score 7 - 10: 72.7% MACE over next 6 weeks - Early Invasive Strategies Allergies: Allergies: Allergies Coded Allergies Type Severity Reaction Last Updated Verified cefdinir Allergy Intermediate Hives 11/10/17 Yes cephalexin Allergy Intermediate 12/13/15 Yes doxycycline Allergy Unknown nausea/vomiting 03/25/19 Yes Physical Exam: PE: Constitutional: Well developed, well nourished, no acute distress, non-toxic appearance. [] HENT: Normocephalic, atraumatic, bilateral external ears normal, no trismus, nose normal. [] Eyes: PERRLA, EOMI, conjunctiva normal, no discharge. [] Neck: Normal range of motion, no tenderness, supple, no stridor. [] Cardiovascular:Heart rate regular rhythm, peripheral pulses intact, cap refill brisk Lungs & Thorax: Bilateral breath sounds clear, no respiratory distress Abdomen: No distention Skin: Warm, dry, no erythema, no rash. [] Ecchymosis to the left thumb and thenar area Back: No tenderness, no CVA tenderness. [] Extremities: Left hand with ecchymosis and swelling to the left thenar area and left thumb. Mild swelling. Cap refill is normal. Sensations intact. Patient has limited range of motion in the left thumb mostly due to pain. Patient has some limited extension of the IP joint on the thumb. Patient has no significant laxity or pain to indicate gamekeeper's thumb. Neurologic: Alert and oriented X 3, limited range of motion left thumb, normal sensory function, no focal deficits noted. [] Psychologic: Affect normal, judgement normal, mood normal. [] Current Patient Data: Vital Signs: Vital Signs Date Time Temp Pulse Resp B/P (MAP) Pulse Ox O2 Delivery O2 Flow Rate FiO2 04/03/20 10:24 98.6 84 16 105/56 (72) 98 Room Air 98.6 EKG: EKG: [] Radiology/Procedures: Radiology/Procedures: [][facility] [address] [place] [address] IMAGING REPORT Signed PATIENT: KRISHNA TAYLOR ACCOUNT: [id number] : 1990 LOCATION: ER AGE: 29 SEX: F EXAM STATUS: PRE ER ORD. PHYSICIAN: MIRIAN SRIVASTAVA MD REASON: FOOTBALL INJURY TO THUMB PROCEDURE: HAND LEFT 3V EXAMINATION: HAND LEFT 3V CLINICAL HISTORY: Reason: FOOTBALL INJURY TO THUMB / Spl. Instructions: / History: TECHNIQUE: HAND LEFT 3V Number of different views (projections): 3 COMPARISON: None FINDINGS: Joint spaces and alignment maintained. No acute fracture. No focal soft tissue swelling. IMPRESSION: No acute osseous abnormality. Electronically signed by: Lance Olmstead DO (04/03/2020 11:03 AM) [id number] DICTATED and SIGNED BY: LANCE OLMSTEAD DO DATE: 04/03/20 1101 Course & Med Decision Making: Course & Med Decision Making Pertinent Labs and Imaging studies reviewed. (See chart for details) [] A short arm thumb spica splint was applied on the left side by me with 3 inch Ortho-Glass. Examined by me after application and patient is neurovascular intact distally. X-rays negative for fracture. Patient placed in a thumb spica splint patient instructed to follow-up with orthopedist in case there is a ligamentous injury. Dragon Disclaimer: Dragon Disclaimer: This electronic medical record was generated, in whole or in part, using a voice recognition dictation system. Departure Departure Impression: Primary Impression: Contusion of left thumb Disposition: HOME, SELF-CARE Condition: STABLE Referrals: DALIA PAREDES MD (PCP) SEEMA JAMES MD 2-3 DAYS Patient Instructions: Cast or Splint Care, Thumb Sprain Additional Instructions: EMERGENCY DEPARTMENT GENERAL DISCHARGE INSTRUCTIONS THANK YOU for coming to [facility] Emergency Department (ED) today and trusting us with your care. We trust that you had a positive experience in our Emergency Department. If you wish to speak to the department Management you can contact the department of sociology chair at . YOUR FOLLOW UP INSTRUCTIONS ARE FOLLOWS: Do you have a private doctor? If you do not have a private doctor, please ask for a resource list of physicians or clinics that may be able to assist you with follow up care. The Emergency Physician has interpreted your x-rays. The X-ray specialist will also review them. If there is a change in the findings you will be notified in 48 hours when at all possible. A lab test or lab culture may have been done, your results will be reviewed and you will be notified if you need a change in treatment. ADDITIONAL INSTRUCTIONS AND INFORMATION Your care today has been supervised by a physician who is specially trained in emergency care. Many problems require more than one evaluation for a complete diagnosis and treatment. We recommend that you schedule your follow up appointment as recommended to ensure complete treatment of your illness or injury. If you are unable to obtain follow up care and continue to have a problem, or if your condition worsens we recommend that you return to the ED. We are not able to safely determine your condition over the phone nor are we able to give sound medical advice over the phone. For these safety reasons, if you call for medical advice we will ask you to come to the ED for further evaluation If you have any questions regarding these discharge instructions please call the ED at . SAFETY INFORMATION In the interest of safety, wellness, and injury prevention; we encourage you to wear your seatbelt, if you smoke; quit smoking, and we encourage your family to use protective helmet for bicycling and other sporting events that present an increased risk for head injury. IF YOUR SYMPTOMS WORSEN OR NEW SYMPTOMS DEVELOP, OR YOU HAVE CONCERNS ABOUT YOUR CONDITION; OR IF YOUR CONDITION WORSENS WHILE YOU ARE WAITING FOR YOUR FOLLOW UP APPOINTMENT; EITHER CONTACT YOUR PRIMARY CARE DOCTOR, THE PHYSICIAN WHOSE NAME AND NUMBER YOU WERE GIVEN, OR RETURN TO THE ED IMMEDIATELY. Scripts Hydrocodone/Apap 5-325 (NORCO 5-325 TABLET) 1 Each Tablet 1 EACH PO PRN Q6HRS PRN for PAIN, #12 as needed for pain Prov: MIRIAN SRIVASTAVA MD 04/03/20 Ibuprofen (Ibuprofen) 200 Mg Tablet 400 MG PO Q6HRS PRN for PAIN, #30 TAB Prov: MIRIAN SRIVASTAVA MD 04/03/20 Justicifation of Admission Dx: Justifications for Admission: Justification of Admission Dx: N/A MIRIAN SRIVASTAVA MD Apr 03, 2020 10:22
[2020-04-03 10:24] VITALS: BP 105/56
[2020-04-03] MEDS ORDERED: IBUP-1670 PO (10:52)
--- NOTE | 2020-04-03 11:06 | RAD ---
EXAMINATION: HAND LEFT 3V CLINICAL HISTORY: Reason: FOOTBALL INJURY TO THUMB / Spl. Instructions: / History: TECHNIQUE: HAND LEFT 3V Number of different views (projections): 3 COMPARISON: None FINDINGS: Joint spaces and alignment maintained. No acute fracture. No focal soft tissue swelling. IMPRESSION: No acute osseous abnormality. Electronically signed by: Lance Del Castillo DO (04/03/2020 11:03 AM) [id number]
[2020-04-03] MEDS ORDERED: HYDR-3164 PO (11:19)
== END 2020-04-03 11:33 | disposition home or self-care (01) ==
LOC: ER 10:08
DX: S60.012A Contusion of left thumb without damage to nail, initial encounter (principal); M79.642 Pain in left hand; R60.0 Localized edema; R20.0 Anesthesia of skin; Z90.89 Acquired absence of other organs; Z98.890 Other specified postprocedural states; Z88.8 Allergy status to other drugs, medicaments and biological substances; Z88.6 Allergy status to analgesic agent; Z88.1 Allergy status to other antibiotic agents; W21.01XA Struck by football, initial encounter; Y93.89 Activity, other specified; Y92.89 Other specified places as the place of occurrence of the external cause; Y99.8 Other external cause status
CPT/HCPCS: 29125; 73130; 99283

== ENCOUNTER 2021-02-01 22:37 | Emergency (ER) | payer MEDICARE, OTHER ==
[~2021-02-01] VITALS: Ht 157.5 cm; Wt 45.0 kg
[~2021-02-01 22:37] MED LIST changes: +IBUP-1670 PO
[2021-02-01 22:53] LABS: BILIRUBIN,URINE NEGATIVE (NEG); CLARITY,URINE CLOUDY; COLOR,URINE YELLOW; NITRITE,URINE NEGATIVE (NEG); PROTEIN,URINE NEGATIVE (NEG-TRACE); UROBILINOGEN,URINE 0.2 mg/dL (0.2 mg/dL)
[2021-02-01 22:58] LABS: U PREG PATIENT NEGATIVE (NEG)
[2021-02-01 23:04] LABS: BACTERIA,URINE 0 /HPF (0-FEW)
[2021-02-02] MEDS ORDERED: MAGN296S68 PO (00:46)
--- NOTE | 2021-02-02 00:46 | PHYS DOC ---
Past Medical History Past Medical History: Anemia, UTI Past Surgical History: Tonsillectomy, Other Additional Past Surgical Histo: cleft palate repair Smoking Status: Never Smoker Alcohol Use: None Drug Use: None General Adult EDM: Chief Complaint: ABDOMINAL PAIN HPI: HPI: Patient is a 30 year old female past medical history anemia presents with a chief complaint of abdominal pain x2 days with associated nausea. Patient states symptoms are exacerbated when she eats. Patient also complains of urinary frequency without urgency or dysuria. Review of Systems: Review of Systems: Constitutional: Denies fever or chills. [] Eyes: Denies change in visual acuity. [] HENT: Denies nasal congestion or sore throat. [] Respiratory: Denies cough or shortness of breath. [] Cardiovascular: Denies chest pain or edema. [] GI: Positive abdominal pain, Positive nausea, no vomiting, bloody stools or diarrhea. [] : Denies dysuria. [] Musculoskeletal: Denies back pain or joint pain. [] Integument: Denies rash. [] Neurologic: Denies headache, focal weakness or sensory changes. [] Endocrine: Denies polyuria or polydipsia. [] Lymphatic: Denies swollen glands. [] Psychiatric: Denies depression or anxiety. [] Heart Score: C/O Chest Pain: N/A Risk Factors: Risk Factors: DM, Current or recent (<one month) smoker, HTN, HLP, family history of CAD, obesity. Risk Scores: Score 0 - 3: 2.5% MACE over next 6 weeks - Discharge Home Score 4 - 6: 20.3% MACE over next 6 weeks - Admit for Clinical Observation Score 7 - 10: 72.7% MACE over next 6 weeks - Early Invasive Strategies Allergies: Allergies: Allergies Coded Allergies Type Severity Reaction Last Updated Verified cefdinir Allergy Intermediate Hives 11/10/17 Yes cephalexin Allergy Intermediate 12/13/15 Yes doxycycline Allergy Unknown nausea/vomiting 03/25/19 Yes Physical Exam: PE: General: alert, no acute distress. Skin: warm, dry and intact. HENT: bilateral external ears normal, oropharynx moist, nose normal. Head:: Normocephalic, atraumatic. Neck: Trachea midline. Eyes: EOMI, Normal conjunctiva, No drainage CARDIOVASCULAR: Regular rate and rhythm RESPIRATORY: No respiratory distress Back: Full range of motion. Skin: Warm, dry, no erythema, no rash. MUSCULOSKELETAL: Full range of motion of bilateral upper and lower extremities. GASTROINTESTINAL: Abdomen soft without rebound or guarding. NEUROLOGICAL: Alert and noted to person, place and time. No neurological deficits observed Psychiatric: Cooperative. Normal judgment Current Patient Data: Labs: Laboratory Tests Test 02/01/21 22:40 02/01/21 22:43 Urine Collection Type Unknown Urine Color Yellow Urine Clarity Cloudy Urine pH 6.0 (<5.0-8.0) Urine Specific [place] >=1.030 (1.000-1.030) Urine Protein Negative mg/dL (NEG-TRACE) Urine Glucose (UA) Negative mg/dL (NEG) Urine Ketones (Stick) Trace mg/dL (NEG) Urine Blood Negative (NEG) Urine Nitrite Negative (NEG) Urine Bilirubin Negative (NEG) Urine Urobilinogen Dipstick 0.2 mg/dL (0.2 mg/dL) Urine Leukocyte Esterase Negative (NEG) Urine RBC 1-2 /HPF (0-2) Urine WBC 1-4 /HPF (0-4) Urine Squamous Epithelial Cells Few /LPF Urine Bacteria 0 /HPF (0-FEW) Urine Mucus Slight /LPF Urine Test Negative (NEG) POC Urine HCG, Qualitative Hcg negative (Negative) Vital Signs: Vital Signs Date Time Temp Pulse Resp B/P (MAP) Pulse Ox O2 Delivery O2 Flow Rate FiO2 02/01/21 22:55 98.3 83 16 103/69 (80) 100 Room Air 98.3 EKG: EKG: [] Radiology/Procedures: Radiology/Procedures: [] Wet read KUB Large amount of stool and air throughout the colon nonobstructive bowel gas Course & Med Decision Making: Course & Med Decision Making Pertinent Labs and Imaging studies reviewed. (See chart for details) [] Dragon Disclaimer: Dragon Disclaimer: This electronic medical record was generated, in whole or in part, using a voice recognition dictation system. Departure Departure Impression: Primary Impression: Abdominal pain Disposition: HOME / SELF CARE / HOMELESS Condition: STABLE Referrals: DALIA PAREDES MD (PCP) Patient Instructions: Abdominal Pain Scripts Magnesium Citrate (MAGNESIUM CITRATE) 296 Ml Solution 296 ML PO ONCE, #296 ML Prov: PUSHPA RODRIGUEZ DO 02/02/21 PUSHPA RODRIGUEZ DO Feb 02, 2021 00:46
[2021-02-02 00:58] VITALS: BP 95/53
--- NOTE | 2021-02-02 13:42 | RAD ---
EXAMINATION: XR ABDOMEN 1V CLINICAL HISTORY: Abdominal pain TECHNIQUE: XR ABDOMEN 1V Number of Images/Views: 1 COMPARISON: None FINDINGS: Nonspecific bowel gas pattern with prominent colonic gas. No pathologic abdominal calcifications. No evidence of acute osseous abnormality. IMPRESSION: Nonspecific bowel gas pattern as described. Electronically signed by: Lance Del Castillo DO (02/02/2021 1:00 AM) [facility]
== END 2021-02-02 01:09 | disposition home or self-care (01) ==
LOC: ER 22:37
DX: R10.30 Lower abdominal pain, unspecified (principal); R11.0 Nausea; R35.0 Frequency of micturition
CPT/HCPCS: 74018; 81001; 81025; 99285-25

== ENCOUNTER 2021-02-04 18:38 | Emergency (ER) | payer MEDICARE, OTHER ==
[~2021-02-04] VITALS: Ht 157.5 cm; Wt 44.5 kg
[~2021-02-04 18:38] MED LIST changes: +MAGN296S68 PO
--- NOTE | 2021-02-04 21:23 | PHYS DOC ---
Past Medical History Past Medical History: Anemia, UTI Past Surgical History: Tonsillectomy, Other Additional Past Surgical Histo: cleft palate repair Smoking Status: Never Smoker Alcohol Use: None Drug Use: None General Adult EDM: Chief Complaint: ABDOMINAL PAIN HPI: HPI: Patient is a 30 year old with no past medical history presents emergency department for abdominal pain. Patient was seen here 2 days ago. At that time she had constipation. She was given mag citrate. Patient did take that yesterday. Last night she had diarrhea. Today throughout the day she has had diffuse cramping abdominal pain that is constant. She has not really eaten or drinking much today. She denies dysuria hematuria nausea vomiting blood in stool chest pain shortness breath fever chills cough vaginal bleeding vaginal discharge concern for sexually transmitted diseases. Patient has never had any abdominal surgeries. Socially drinks alcohol. Denies drugs or tobacco. Review of Systems: Review of Systems: Review of Systems: Constitutional: Denies fever or chills Eyes: Denies redness or eye pain HENT: Denies nasal congestion or sore throat Respiratory: Denies cough or shortness of breath Cardiovascular: Denies chest pain or palpitations GI: denies nausea, denies vomiting or diarrhea : Denies dysuria or hematuria Musculoskeletal: Denies back pain or joint pain Integument: Denies rash or skin lesions Neurologic: Denies headache, focal weakness or sensory changes Heart Score: C/O Chest Pain: No Allergies: Allergies: Allergies Coded Allergies Type Severity Reaction Last Updated Verified cefdinir Allergy Intermediate Hives 11/10/17 Yes cephalexin Allergy Intermediate 12/13/15 Yes doxycycline Allergy Unknown nausea/vomiting 03/25/19 Yes Physical Exam: PE: *GENERAL APPEARANCE: Awake and alert. Cooperative. No acute distress. Non toxic appearing. HEAD: Normocephalic. Atraumatic. EYES: EOM's grossly intact. Sclera anicteric. Conjunctiva clear ENT:. Airway patent. Mucous membranes moist. No trismus. Tolerating secretions. NECK: Supple. Trachea midline. HEART: Regular rate and rhythm. Radial pulses 2+. Good capillary refill. LUNGS: Respirations unlabored. Clear to auscultation bilaterally. No rales, rhonchi, wheezing or retractions. ABDOMEN: Soft. Diffuse abdominal tenderness no guarding or rebound. No CVA tenderness. No palpable or pulsatile mass. EXTREMITIES: No acute deformities. No edema, erythema or calf tenderness. SKIN: Warm and dry. No rash. NEUROLOGICAL: Alert and oriented x3. No gross neurological deficits. Moves all 4 extremities spontaneously. PSYCHIATRIC: Normal mood. Current Patient Data: Labs: Laboratory Tests Test 02/04/21 21:08 POC Urine HCG, Qualitative Hcg negative (Negative) Vital Signs: Vital Signs Date Time Temp Pulse Resp B/P (MAP) Pulse Ox O2 Delivery O2 Flow Rate FiO2 02/04/21 20:20 98.5 76 18 138/67 (90) 98 Room Air 98.5 EKG: EKG: [] Radiology/Procedures: Radiology/Procedures: []PATIENT: KRISHNA TAYLOR DACCOUNT: [id number]#: [id number] : 1990 LOCATION: ER AGE: 30 SEX: F EXAM STATUS: REG ER ORD. PHYSICIAN: NADINE TINAJERO DO REASON: abdominal pain PROCEDURE: CT ABD PELV W/ IV CONTRST ONLY CT abdomen pelvis with contrast. HISTORY: Abdominal pain CT abdomen pelvis was done using 75 mL Omnipaque 300 contrast. Lung bases are clear. There is no effusion. Liver is normal in appearance. There is no calcified gallstone. Spleen is unremarkable. Adrenal glands are normal. There is no mass or hydronephrosis in the kidneys. Pancreas is normal. There is no bowel obstruction. There is a small amount of free fluid in the pelvis. Uterus is normal in appearance. There are follicles in each ovary without an ovarian mass. There is moderate stool in the right colon. The cecum is in the pelvis. The appendix is adjacent to the right ovary on the right side of the pelvis and normal in appearance. IMPRESSION: 1. Moderate stool in the colon, especially in the right colon. 2. Normal appendix. 3. Follicles in the ovaries. 4. Small amount of fluid in the pelvis. 5. No other acute finding in the abdomen or pelvis. PQRS Compliance Statement: One or more of the following individualized dose reduction techniques were utilized for this examination: 1. Automated exposure control 2. Adjustment of the mA and/or kV according to patient size 3. Use of iterative reconstruction technique Electronically signed by: Hitesh Tillman MD (02/04/2021 10:34 PM) [facility] DICTATED and SIGNED BY: HITESH TILLMAN MD DATE: 02/04/21 [id number] Course & Med Decision Making: Course & Med Decision Making Medical decision making: This is a 30-year-old female presents with abdominal pain. Here in the emergency department patient appears no acute distress. She is very nontoxic appearing. Afebrile. Blood pressure stable. Laboratory evaluation relatively unremarkable. No leukocytosis. Hemoglobin 10.2. Patient does have history of anemia. No signs or symptoms of active bleeding at this time. Electrolytes stable. Does not appear infected. Patient is not . CT abdomen pelvis shows moderate stool in the colon. Normal appendix. Follicles in the ovaries. Small amount of fluid in the pelvis. No other acute findings. On repeat evaluation patient is resting comfortably. She appears in no acute distress. She is texting on her phone. Abdomen is soft nontender. Lengthy discussion with patient with symptoms and findings. She is to monitor her symptoms. She is to return to the emergency department if symptoms not improved. Patient feels comfortable with the plan. The patient is given strict emergency department return precautions and follow up information. They express a verbal understanding of my instructions. The patient is aware of any labs and imaging. All questions are answered and patient is stable at the time of discharge. I have spoken to the patient and/or caregivers. I have explained the patient's condition, diagnoses and treatment plan based on the information available to me at this time. I have answered the patient and/or caregiver's questions and addressed any concerns. The patient and/or caregiver has a good understanding of the patient's diagnosis, condition and treatment plan as can be expected at this point. The vital signs have been stable. The patient's condition is stable and appropriate for discharge from the emergency department. The patient will perfuse to further outpatient evaluation with primary care physician and/or other designated or consulting physicians as outlined in the discharge instructions. The patient and/or caregivers are agreeable to this plan and in the care follow-up instructions have been explained in detail. The patient and/or caregivers have received these instructions in written format and have expressed an understanding of the discharge instructions. The patient and/or caregivers are aware that any significant change in condition or worsening of symptoms should prompt an immediate return to this or the closest emergency department or a call to 911. Discharged to home Discharge time: 2354 Date: February 05, 2021 Condition: Stable Papi Disclaimer: Papi Disclaimer: This electronic medical record was generated, in whole or in part, using a voice recognition dictation system. Departure Departure Impression: Primary Impression: Abdominal pain Disposition: HOME / SELF CARE / HOMELESS Referrals: DALIA PAREDES MD (PCP) Patient Instructions: Abdominal Pain (Nonspecific), Abdominal Pain, [id number], Constipation, Adult, Constipation, Adult, [id number] Additional Instructions: Please return to the emergency department in 24 hours for recheck of your abdominal pain. Please return sooner if symptoms worsen. Please schedule follow-up appointment with primary care provider in 1 to 2 days. Scripts Ondansetron (ONDANSETRON ODT) 4 Mg Tab.rapdis 1 TAB PO PRN Q6-8HRS PRN for NAUSEA, #20 TAB Prov: NADINE TINAJERO DO 02/05/21 [zo] No Conflict Check Prov: NADINE TINAJERO DO 02/05/21 NADINE TINAJERO DO Feb 04, 2021 21:23
[2021-02-04 21:47] LABS: BASO % 1 % (0-3); EOS % 0 % (0-3); HEMOGLOBIN 10.2 g/dL (12.0-15.5); LYMPH # 1.5 x10^3/uL (1.0-4.8); LYMPH % 25 % (24-48); MEAN CORPUSCULAR HEMOGLOBIN 24 pg (25-35); MEAN CORPUSCULAR HGB CONC 32 g/dL (31-37); MEAN CORPUSCULAR VOLUME 74 fL (79-100); MONO # 0.6 x10^3/uL (0.0-1.1); MONO % 10 % (0-9); NEUT # 3.9 x10^3/uL (1.8-7.7); NEUT % 64 % (31-73); PLATELET COUNT 279 x10^3/uL (140-400); RED BLOOD COUNT 4.33 x10^6/uL (3.50-5.40); RED CELL DISTRIBUTION WIDTH 19.8 % (11.5-14.5)
[2021-02-04 22:02] LABS: CALCIUM 9.4 mg/dL (8.5-10.1); CREATININE 0.6 mg/dL (0.6-1.0); POTASSIUM 3.7 mmol/L (3.5-5.1)
[2021-02-04 22:16] LABS: ALBUMIN 4.7 g/dL (3.4-5.0); ALBUMIN/GLOBULIN RATIO 1.9 (1.0-1.7); TOTAL BILIRUBIN 0.4 mg/dL (0.2-1.0); TOTAL PROTEIN 7.2 g/dL (6.4-8.2)
[2021-02-04] MEDS ORDERED: CONTRAST GIVEN. MC PRN (22:30)
[2021-02-04] MEDS ORDERED: IOHEXOL 300 MG/ML 100ML VIAL. IV ONE (22:30)
--- NOTE | 2021-02-04 22:37 | RAD ---
CT abdomen pelvis with contrast. HISTORY: Abdominal pain CT abdomen pelvis was done using 75 mL Omnipaque 300 contrast. Lung bases are clear. There is no effu hayes. Liver is normal in appearance. There is no calcified gallstone. Spleen is unremarkable. Adrenal glands are normal. There is no mass or hydronephrosis in the kidneys. Pancreas is normal. There is n o bowel obstruction. There is a small amount of free fluid in the pelvis. Uterus is normal in appeara nce. There are follicles in each ovary without an ovarian mass. There is moderate stool in the right colon. The cecum is in the pelvis. The appendix is adjacent to the right ovary on the right side of t he pelvis and normal in appearance. IMPRESSION: 1. Moderate stool in the colon, especially in the right colon. 2. Normal appendix. 3. Follicles in the ovaries. 4. Small amount of fluid in the pelvis. 5. No other acute finding in the abdomen or pelvis. PQRS Compliance Statement: One or more of the following individualized dose reduction techniques were utilized for this examinat ion: 1. Automated exposure control 2. Adjustment of the mA and/or kV according to patient size 3. Use of iterative reconstruction technique Electronically signed by: Hitesh Tillman MD (02/04/2021 10:34 PM) [facility]
[2021-02-04 22:59] LABS: BILIRUBIN,URINE NEGATIVE (NEG); CLARITY,URINE TURBID; COLOR,URINE AMBER; NITRITE,URINE NEGATIVE (NEG); PH,URINE 5.5 (<5.0-8.0); PROTEIN,URINE NEGATIVE (NEG-TRACE); UROBILINOGEN,URINE 0.2 mg/dL (0.2 mg/dL)
[2021-02-04 23:06] LABS: AMORPHOUS SEDIMENT,UR PRESENT /HPF; BACTERIA,URINE 0 /HPF (0-FEW); RBC,URINE 0 /HPF (0-2); WBC,URINE 0 /HPF (0-4)
[2021-02-05] VITALS: BP 101/56
[2021-02-05] MEDS ORDERED: [UNRECOGNIZED DRUG - OTHER]
[2021-02-05] MEDS ORDERED: ONDA4TAB12 PO
== END 2021-02-05 00:31 | disposition home or self-care (01) ==
LOC: ER 18:38
DX: R10.84 Generalized abdominal pain (principal); R19.7 Diarrhea, unspecified; Z87.440 Personal history of urinary (tract) infections; Z86.2 Personal history of diseases of the blood and blood-forming organs and certain disorders involving the immune mechanism; Z88.1 Allergy status to other antibiotic agents
CPT/HCPCS: 36415; 74177; 80053; 81001; 81025; 83690; 84484; 85025; 99285; Q9967

== ENCOUNTER 2021-05-08 19:09 | Emergency (ER) | payer MEDICARE, OTHER ==
[~2021-05-08] VITALS: Ht 157.5 cm; Wt 41.0 kg
[~2021-05-08 19:09] MED LIST changes: +ONDA4TAB12 PO; +[UNRECOGNIZED DRUG - OTHER]
[2021-05-08] MEDS ORDERED: ACETAMINOPHEN 325 MG TABLET. PO ONE (19:45)
[2021-05-08] MEDS ORDERED: KETOROLAC 60 MG/2 ML VIAL. IM ONE (19:45)
[2021-05-08 19:55] LABS: BASO # 0.1 x10^3/uL (0.0-0.2); BASO % 1 % (0-3); EOS # 0.1 x10^3/uL (0.0-0.7); EOS % 3 % (0-3); HEMATOCRIT 31.1 % (36.0-47.0); HEMOGLOBIN 9.9 g/dL (12.0-15.5); LYMPH % 43 % (24-48); MEAN CORPUSCULAR HEMOGLOBIN 25 pg (25-35); MEAN CORPUSCULAR HGB CONC 32 g/dL (31-37); MEAN CORPUSCULAR VOLUME 77 fL (79-100); MONO # 0.5 x10^3/uL (0.0-1.1); MONO % 11 % (0-9); NEUT # 1.9 x10^3/uL (1.8-7.7); NEUT % 42 % (31-73); PLATELET COUNT 313 x10^3/uL (140-400); RED BLOOD COUNT 4.04 x10^6/uL (3.50-5.40); RED CELL DISTRIBUTION WIDTH 16.4 % (11.5-14.5); WHITE BLOOD COUNT 4.5 x10^3/uL (4.0-11.0)
[2021-05-08 20:16] LABS: CALCIUM 9.1 mg/dL (8.5-10.1); CREATININE 0.6 mg/dL (0.6-1.0); POTASSIUM 3.6 mmol/L (3.5-5.1)
[2021-05-08 20:22] LABS: ALBUMIN 3.8 g/dL (3.4-5.0); ALBUMIN/GLOBULIN RATIO 1.2 (1.0-1.7); TOTAL BILIRUBIN 0.1 mg/dL (0.2-1.0); TOTAL PROTEIN 7.1 g/dL (6.4-8.2)
--- NOTE | 2021-05-08 20:24 | RAD ---
XR CHEST 1V 05/08/2021 7:49 PM INDICATION: Chest pain COMPARISON: 09/06/2019 TECHNIQUE: Portable frontal view of the chest is provided. FINDINGS: The cardiomediastinal silhouette is within normal limits. Lungs are clear. There are no significant pleural effusions. There is no pulmonary vascular congestion. No pneumothora x. No suspicious osseous abnormality. IMPRESSION: There is no acute cardiopulmonary process. Electronically signed by: Sho Torres MD (05/08/2021 8:22 PM) [facility]
[2021-05-08] MEDS ORDERED: BACI28.34 TP (22:04)
--- NOTE | 2021-05-08 22:04 | PHYS DOC ---
Past Medical History Past Medical History: Anemia, UTI (DANIEL SADLER APRN) Past Surgical History: Other Additional Past Surgical Histo: cleft palate repair (DANIEL SADLER APRN) Smoking Status: Never Smoker Alcohol Use: None Drug Use: None (DANIEL SADLER APRN) General Adult EDM: Chief Complaint: CHEST PAIN HPI: HPI: Patient is a 30 year old female presents to the emergency department complaining of chest discomfort with movement and deep breathing and also a spider bite to her right lower leg after working in her father's garage moving boxes all day yesterday. Patient reports that she woke up today and noticed th at she had pain in the upper part of her chest with movement of her upper extremities and deep breathing. Patient states she feels an itchy type pain to her right lower leg and noticed a spot that she feels may have been a spider bite patient denies taking any medications for her pain or discomfort. Did not cleanse nor put any treatments to the spider bite area. Patient reports her LMP is now. Reports a allergy to Keflex, doxycycline, cefoxitin. Reports receiving the COVID-19 virus vaccination series. Denies other physical complaints or physical concerns. (DANIEL SADLER APRN) Review of Systems: Review of Systems: 14 body systems of review of systems have been reviewed. See HPI for pertinent positives and negative responses, otherwise all other systems are negative, nonpertinent or noncontributory. Constitutional: Negative except as outlined in HPI above. Skin: Negative except as outlined in HPI above. Eyes: Negative except as outlined in HPI above. HENT: Negative except as outlined in HPI above. Respiratory: Negative except as outlined in HPI above. Cardiovascular: Negative except as outlined in HPI above. GI: Negative except as outlined in HPI above. : Negative except as outlined in HPI above. Musculoskeletal: Negative except as outlined in HPI above. Integument: Negative except as outlined in HPI above. Neurologic: Negative except as outlined in HPI above. Endocrine: Negative except as outlined in HPI above. Lymphatic: Negative except as outlined in HPI above. Psychiatric: Negative except as outlined in HPI above. (DANIEL SADLER APRN) Heart Score: C/O Chest Pain: Yes HEART Score for Chest Pain: HEART Score for Chest Pain Response (Comments) Value History Slighlty/Non-Suspicious 0 ECG Normal 0 Age < 45 0 Risk Factors No Risk Factors 0 Troponin < Normal Limit 0 Total 0 Risk Factors: Risk Factors: DM, Current or recent (<one month) smoker, HTN, HLP, family history of CAD, obesity. Risk Scores: Score 0 - 3: 2.5% MACE over next 6 weeks - Discharge Home Score 4 - 6: 20.3% MACE over next 6 weeks - Admit for Clinical Observation Score 7 - 10: 72.7% MACE over next 6 weeks - Early Invasive Strategies (DANIEL SADLER APRN) Current Medications: Current Medications Medications (Trade) Dose Ordered Sig/Ruby Start Time Stop Time Status Last Admin Dose Admin Acetaminophen (Tylenol) 650 mg 1X ONCE 05/08/21 19:45 05/08/21 19:48 DC 05/08/21 19:55 650 MG Ketorolac Tromethamine (Toradol Im) 60 mg 1X ONCE 05/08/21 19:45 05/08/21 19:48 DC 05/08/21 19:55 60 MG (DANIEL SADLER APRN) Allergies: Allergies: Allergies Coded Allergies Type Severity Reaction Last Updated Verified cefdinir Allergy Intermediate Hives 11/10/17 Yes cephalexin Allergy Intermediate 12/13/15 Yes doxycycline Adverse Reaction Unknown nausea/vomiting 02/04/21 Yes (DANIEL SADLER APRN) Physical Exam: PE: Constitutional: Well developed, well nourished, no acute distress, non-toxic appearance. 30-year-old female in no apparent distress. HENT: Normocephalic, atraumatic. Eyes: Conjunctiva normal, no discharge. Neck: Normal range of motion, no stridor. Cardiovascular: No cyanosis appreciated, distal cap refill less than 2 seconds. Heart sounds S1-S2 dilatation. Lungs & Thorax: Patient is in no respiratory distress, no audible adventitious lung sounds appreciated. Pain to palpation of the upper left and right anterior thorax, increased pain with movement of upper extremities, no crepitus appreciated, no subcu air, equal rise and fall of chest with breathing. Abdomen: Nontender, no abnormalities noted. Skin: Warm, dry, no erythema, no rash. Back: No tenderness, no deformities. Extremities: No tenderness, no cyanosis, no clubbing, ROM intact, no edema. Except for right lower extremity medial aspect just distal to calf area has 2 mm in diameter skin lesion, no drainage appreciated, flat, pink erythema, skin bor ders clearly demarcated. Neurologic: Alert and oriented X 3, normal motor function, normal sensory f unction, no focal deficits noted. Psychologic: Affect normal, judgement normal, mood normal. (DANIEL SADLER APRN) Current Patient Data: Labs: Laboratory Tests Test 05/08/21 19:45 White Blood Count 4.5 x10^3/uL (4.0-11.0) Red Blood Count 4.04 x10^6/uL (3.50-5.40) Hemoglobin 9.9 g/dL (12.0-15.5) L Hematocrit 31.1 % (36.0-47.0) L Mean Corpuscular Volume 77 fL (79-100) L Mean Corpuscular Hemoglobin 25 pg (25-35) Mean Corpuscular Hemoglobin Concent 32 g/dL (31-37) Red Cell Distribution Width 16.4 % (11.5-14.5) H Platelet Count 313 x10^3/uL (140-400) Neutrophils (%) (Auto) 42 % (31-73) Lymphocytes (%) (Auto) 43 % (24-48) Monocytes (%) (Auto) 11 % (0-9) H Eosinophils (%) (Auto) 3 % (0-3) Basophils (%) (Auto) 1 % (0-3) Neutrophils # (Auto) 1.9 x10^3/uL (1.8-7.7) Lymphocytes # (Auto) 2.0 x10^3/uL (1.0-4.8) Monocytes # (Auto) 0.5 x10^3/uL (0.0-1.1) Eosinophils # (Auto) 0.1 x10^3/uL (0.0-0.7) Basophils # (Auto) 0.1 x10^3/uL (0.0-0.2) Sodium Level 139 mmol/L (136-145) Potassium Level 3.6 mmol/L (3.5-5.1) Chloride Level 102 mmol/L (98-107) Carbon Dioxide Level 29 mmol/L (21-32) Anion Gap 8 (6-14) Blood Urea Nitrogen 16 mg/dL (7-20) Creatinine 0.6 mg/dL (0.6-1.0) Estimated GFR (Cockcroft-Gault) 119.0 BUN/Creatinine Ratio 27 (6-20) H Glucose Level 99 mg/dL (70-99) Calcium Level 9.1 mg/dL (8.5-10.1) Total Bilirubin 0.1 mg/dL (0.2-1.0) L Aspartate Amino Transferase (AST) 22 U/L (15-37) Alanine Aminotransferase (ALT) 36 U/L (14-59) Alkaline Phosphatase 63 U/L (46-116) Creatine Kinase 131 U/L (26-192) Creatine Kinase MB (Mass) 0.8 ng/mL (0.0-3.6) Creatine Kinase MB Relative Index 0.6 % (0-4) Troponin I Quantitative < 0.017 ng/mL (0.000-0.055) Total Protein 7.1 g/dL (6.4-8.2) Albumin 3.8 g/dL (3.4-5.0) Albumin/Globulin Ratio 1.2 (1.0-1.7) Laboratory Tests 05/08/21 19:45 Laboratory Tests 05/08/21 19:45 Vital Signs: Vital Signs Date Time Temp Pulse Resp B/P (MAP) Pulse Ox O2 Delivery O2 Flow Rate FiO2 05/08/21 19:16 98.7 75 16 109/57 (74) 100 Room Air 98.7 (DANIEL SADLER APRN) EKG: EKG: EKG performed at 1929 by ED nursing staff shows normal sinus rhythm without other ectopy, heart rate 60 bpm, IN interval 0.112, QTc interval 0.418, no acute STEMI, no ACS, no acute ischemia appreciated, EKG interpreted by ED attending physician Dr. Nieto. (DANIEL SADLER APRN) Radiology/Procedures: Radiology/Procedures: PATIENT: KRISHNA TAYLOR ACCOUNT: [id number] : 1990 LOCATION: ER AGE: 30 SEX: F EXAM STATUS: PRE ER ORD. PHYSICIAN: DANIEL SADLER APRN REASON: Chest pain PROCEDURE: CHEST AP ONLY XR CHEST 1V 05/08/2021 7:49 PM INDICATION: Chest pain COMPARISON: 09/06/2019 TECHNIQUE: Portable frontal view of the chest is provided. FINDINGS: The cardiomediastinal silhouette is within normal limits. Lungs are clear. There are no significant pleural effusions. There is no pulmonary vascular congestion. No pneumothorax. No suspicious osseous abnormality. IMPRESSION: There is no acute cardiopulmonary process. Electronically signed by: Sho Torres MD (05/08/2021 8:22 PM) [facility] (DANIEL SADLER APRN) Course & Med Decision Making: Course & Med Decision Making Pertinent Labs and Imaging studies reviewed. (See chart for details) 30-year-old female, vital signs reviewed, presents emergency department concerning chest pain with a spider bite to the right lower leg after moving heavy boxes at her dad's garage all day yesterday. Physical examination consistent with musculoskeletal chest wall pain, insect bite to right lower extremity will have ED nursing cleanse and dress. Will perform cardiorespiratory work-up. Will give pain medication in the ED. Patient is EKG unremarkable, HEART score equals 0, cardiac enzymes unremarkable. Chest x-ray unremarkable. Patient reports pain relief with pain medications given in the ED today. Discussed with patient pain is most likely musculoskeletal chest wall pain from moving heavy items yesterday, discussed with patient cleansing insect bite area 3 times a day with application of an tibiotic ointment, strict follow-up with primary care this week for reevaluation. Patient is amenable to ED discharge planning. Discussed with the patient all findings and diagnostic testing as well as the need to follow-up with their primary care provider for further evaluation and treatment or return to the ED if any new or worsening symptoms. Strict return precautions were also discussed at length, the patient voiced understanding and agreement with the discharge planning. The patient was nontoxic in appearance, in no apparent distress, and hemodynamically stable at the time of disposition. (DANIEL SADLER APRN) Course & Med Decision Making I was the Attending physician on the above date of service of this patient. This patient was evaluated, examined, treated, and dispositioned from the emergency department by the mid-level practitioner. Although I was working at the time , no assistance was requested. Electronically signed, Whitney Nieto DO (WHITNEY NIETO DO) Papi Disclaimer: Papi Disclaimer: This electronic medical record was generated, in whole or in part, using a voice recognition dictation system. (DANIEL SADLER APRN) Departure Departure Impression: Primary Impression: Chest wall pain Additional Impression: Insect bite Qualified Codes: S80.861A - Insect bite (nonvenomous), right lower leg, initial encounter; W57.XXXA - Bitten or stung by nonvenomous insect and other nonvenomous arthropods, initial encounter Disposition: HOME / SELF CARE / HOMELESS Condition: GOOD Referrals: DALIA PAREDES MD (PCP) Patient Instructions: Chest Wall Pain, Insect Bite Additional Instructions: You were seen today in the emergency department for chest pain and an insect bite to your right lower leg. Your ED work-up is reassuring and that there is no sign of heart injury or lung injury, there is no sign of pneumonia or other infectious process. This is most likely a chest wall pain from you working in your garage yesterday. The insect bite on your right leg can be treated with an antibiotic ointment that I am prescribing for you, please keep clean and dry, do daily cleansing with soap and water and application of antibiotic ointment, you may or may not choose to use a Band-Aid over the top. Please follow-up with your primary care physician this week for ongoing chest pain management and reevaluation of your bug bite wound. Thank you for visiting our Emergency Department. It was a pleasure taking care of you today in the emergency department and we appreciate you trusting us with your care. If any additional problems come up don't hesitate to return to visit us. Please follow up with your primary care provider so they can plan additional care if needed and know about the problem that you had. If symptoms worsen come back to the Emergency Department. Any concerning symptoms that start such as chest pain, shortness of air, weakness or numbness on one side of the body, running high fevers or any other concerning symptoms return to the ER. EMERGENCY DEPARTMENT GENERAL DISCHARGE INSTRUCTIONS Thank you for coming to [facility] Emergency Department (ED) today and trusting us with you care. We trust that you had a positive experience in our Emergency Department. If you wish to speak to the department management, you may call the Director at [phone]. YOUR FOLLOW UP INSTRUCTIONS ARE FOLLOWS: 1. Do you have a private Doctor? If you do not have a private doctor, please ask for a resource list of physicians or clinics that may be able to assist you with follow up care. 2. The Emergency Physicain has interpreted your x-rays. The X-Ray specialist will also review them. If there is a change in the findings, you will be notified in 48 hours when at all possible. 3. A lab test or culture has been done, your results will be reviewed and you will be notified if you need a change in treatment. ADDITIONAL INSTRUCTIONS AND INFORMATION: 1. Your care today has been supervised by a physician who is specially trained in emergency care. Many problems require more than one evaluation for a complete diagnosis and treatment. We recommend that you schedule your follow up appointment as recommended to ensure complete treatment of you illness or injury. If you are unable to obtain follow up care and continue to have a problem, or if your condition worsens, we recommend that you return to the ED. 2. We are not able to safely determine your condition over the phone nor are we able to give sound medical advice over the phone. For these safety reasons, if you call for medical advice we will ask you to come to the ED for further evaluation. 3. If you have any questions regarding these discharge instructions please call the ED at [phone]. SAFETY INFORMATION: In the interest of safety, wellness, and injury prevention; we encourage you to wear your sealbelt, if you smoke; quite smoking, and we encourage family to use a protective helmet for bicycling and other sporting events that present an increased risk for head injury. IF YOUR SYMPTOMS WORSEN OR NEW SYMPTOMS DEVELOP, OR YOU HAVE CONCERNS ABOUT YOUR CONDITION; OR IF YOUR CONDITION WORSENS WHILE YOU ARE WAITING FOR YOUR FOLLOW UP APPOINTMENT; EITHER CONTACT YOUR PRIMARY CARE DOCTOR, THE PHYSICIAN WHOSE NAME AND NUMBER YOU WERE GIVEN, OR RETURN TO THE ED IMMEDIATELY. Scripts Bacitracin/Polymyxin B Sulfate (POLYSPORIN TOPICAL OINT) 28.3 Gm Oint...g. 1 SUMA TP TID for WOUND CARE, #1 EACH 0 Refills DIRECTED BY PHYSICIAN Prov: DANIEL SADLER APRN 05/08/21 DANIEL SADLER APRN May 08, 2021 22:04 WHITNEY NIETO DO May 10, 2021 00:48
[2021-05-08 22:16] VITALS: BP 92/55
--- NOTE | 2021-05-09 01:33 | EKG ---
[facility] [address] [place] [address] Test Date: 2021-05-08 Test Time: 19:29:55 Pat Name: KRISHNA TAYLOR Department: Room: Gender: F Neon Sign Installer: : 1990 Requested By: DANIEL SADLER Order Number: [id number] Reading MD: Measurements Intervals [place] Rate: 60 P: 71 NH: 112 QRS: 71 QRSD: 76 T: 59 QT: 418 QTc: 418 Interpretive Statements SINUS RHYTHM QRS(T) CONTOUR ABNORMALITY CONSIDER ANTEROLATERAL MYOCARDIAL DAMAGE POSSIBLY ABNORMAL ECG RI6.01 No previous ECG available for comparison
== END 2021-05-08 22:31 | disposition home or self-care (01) ==
LOC: ER 19:09
DX: S80.861A Insect bite (nonvenomous), right lower leg, initial encounter (principal); R07.89 Other chest pain; Z87.440 Personal history of urinary (tract) infections; Z86.2 Personal history of diseases of the blood and blood-forming organs and certain disorders involving the immune mechanism; Z88.1 Allergy status to other antibiotic agents; W57.XXXA Bitten or stung by nonvenomous insect and other nonvenomous arthropods, initial encounter; Y93.89 Activity, other specified; Y92.89 Other specified places as the place of occurrence of the external cause; Y99.8 Other external cause status
CPT/HCPCS: 36415; 71045; 80053; 82553; 84484; 85025; 93005; 96372; 99285; J1885

== ENCOUNTER 2021-08-06 15:06 | Emergency (ER) | payer MEDICARE, OTHER ==
[~2021-08-06] VITALS: Ht 157.5 cm; Wt 44.0 kg
[~2021-08-06 15:06] MED LIST changes: +BACI28.34 TP; +CYCL10TA19 PO; -CYCL10TA2 PO
[2021-08-06 15:25] VITALS: BP 107/78
[2021-08-06] MEDS ORDERED: FAMOTIDINE 20 MG TABLET. PO ONE (16:45)
[2021-08-06] MEDS ORDERED: diphenhydrAMINE HCL 25 MG CAPSULE PO ONE (16:45)
[2021-08-06] MEDS ORDERED: predniSONE 10 MG TABLET PO ONE (16:45)
[2021-08-06] MEDS ORDERED: METH4TAB2 PO (16:48)
[2021-08-06] MEDS ORDERED: SULF1TAB24 PO (16:48)
[2021-08-06] MEDS ORDERED: FAMO-63 PO (16:48)
[2021-08-06] MEDS ORDERED: DIPH25TA64 PO (16:48)
[2021-08-06] MEDS ORDERED: EPIPEN 2-P0.3 MG/0.3 IM (16:48)
--- NOTE | 2021-08-06 16:49 | PHYS DOC ---
Past Medical History Past Medical History: Anemia, UTI (KEMAL SMITH HERD TESTER) Past Surgical History: Other Additional Past Surgical Histo: cleft palate repair [facility] HERD TESTER) Smoking Status: Never Smoker Alcohol Use: None Drug Use: None ([facility] HERD TESTER) General Adult EDM: Chief Complaint: ALLERGIC REACTION HPI: HPI: Patient is a 31 year old female who presents with urgent care yesterday was diagnosed with a urinary tract infection they placed her on Macrobid antibiotic. She then broke out in hives today. Patient is not taking any medications for her hives. She denies shortness of breath, chest pain, tongue swelling, mouth swelling, wheezing, chest tightness, hives in her mouth, clara pain, nausea, vomiting, diarrhea. (KEMAL SMITH HERD TESTER) Review of Systems: Review of Systems: Constitutional: Denies fever or chills. [] Eyes: Denies change in visual acuity. [] HENT: Denies nasal congestion or sore throat. [] Respiratory: Denies cough or shortness of breath. [] Cardiovascular: Denies chest pain or edema. [] GI: Denies abdominal pain, nausea, vomiting, bloody stools or diarrhea. [] : Denies dysuria. [] Musculoskeletal: Denies back pain or joint pain. [] Integument: Denies rash. + Hives [] Neurologic: Denies headache, focal weakness or sensory changes. [] Endocrine: Denies polyuria or polydipsia. [] Lymphatic: Denies swollen glands. [] Psychiatric: Denies depression or anxiety. [] (KEMAL SMITH HERD TESTER) Heart Score: C/O Chest Pain: No ([facility] HERD TESTER) Allergies: Allergies: Allergies Coded Allergies Type Severity Reaction Last Updated Verified cefdinir Allergy Intermediate Hives 11/10/17 Yes cephalexin Allergy Intermediate 12/13/15 Yes nitrofurantoin Allergy Intermediate Hives 08/06/21 Yes doxycycline Adverse Reaction Unknown nausea/vomiting 02/04/21 Yes (KEMAL SMITH HERD TESTER) Physical Exam: PE: Constitutional: Well developed, well nourished, no acute distress, non-toxic appearance. [] HENT: Normocephalic, atraumatic, bilateral external ears normal, oropharynx moist, no oral exudates, nose normal. [] Eyes: PERRLA, EOMI, conjunctiva normal, no discharge. [] Neck: Normal range of motion, no tenderness, supple, no stridor. [] Cardiovascular:Heart rate regular rhythm, no murmur [] Lungs & Thorax: Bilateral breath sounds clear to auscultation [] Abdomen: Bowel sounds normal, soft, no tenderness, no masses, no pulsatile masses. [] Skin: Warm, dry, no erythema, no rash. Hives on arms and chest [] Back: No tenderness, no CVA tenderness. [] Extremities: No tenderness, no cyanosis, no clubbing, ROM intact, no edema. [] Neurologic: Alert and oriented X 3, normal motor function, normal sensory function, no focal deficits noted. [] Psychologic: Affect normal, judgement normal, mood normal. [] (KEMAL SMITH APRN) Current Patient Data: Vital Signs: Vital Signs Date Time Temp Pulse Resp B/P (MAP) Pulse Ox O2 Delivery O2 Flow Rate FiO2 08/06/21 15:25 98.0 73 12 107/78 (88) 100 Room Air 98.0 (KEMAL SMITH HERD TESTER) EKG: EKG: [] (KEMAL SMITH APRN) Radiology/Procedures: Radiology/Procedures: [] (KEMAL SMITH APRN) Course & Med Decision Making: Course & Med Decision Making Pertinent Labs and Imaging studies reviewed. (See chart for details) See HPI. She is going to be placed on Bactrim antibiotic. To the patient stop taking the Macrobid. Patient is given Pepcid, Benadryl, prednisone in the ED. No angioedema. No hives to the face. No swelling to the face or mouth, or tongue. Uvula midline and not swollen. Swallowing her saliva just fine. No swelling in her throat. Alert and oriented x4. Speaks in full clear sentences. Lungs are clear all station all lobes. No respiratory distress. Vitals are within normal limits. [] (KEMAL SMITH APRN) Course & Med Decision Making I was the Attending physician on the above date of service of this patient. This patient was evaluated, examined, treated, and dispositioned from the emergency department by the mid-level practitioner. Although I was working at the time , no assistance was requested. Electronically signed, Whitney Nieto DO (WHITNEY NIETO DO) Papi Disclaimer: Papi Disclaimer: This electronic medical record was generated, in whole or in part, using a voice recognition dictation system. (EKMAL SMITH LILLIAN) Departure Departure Impression: Primary Impression: Hives Disposition: HOME / SELF CARE / HOMELESS Condition: STABLE Referrals: DALIA PAREDES MD (PCP) Patient Instructions: Hives Additional Instructions: Take medication as prescribed and with food. Stop taking the Macrobid. Drink plenty of fluids. If begin having facial swelling or trouble breathing you return to emergency room. Scripts Epinephrine (EPIPEN 2-ALKA) 0.3 Mg/0.3 Ml Auto.injct 1 SYR IM ONCE PRN for ANAPHYLAXIS, #1 PACKET 0 Refills Use only for respiratory distress and then you must call 911 and come to the emergency room Prov: KEMAL SMITH LILLIAN 08/06/21 Famotidine (PEPCID) 20 Mg Tablet 20 MG PO BID, #6 TAB Prov: KEMAL SMITH HERD TESTER 08/06/21 Methylprednisolone (MEDROL) 4 Mg Tab.ds.pk 1 PKG PO UD, #1 PKG Prov: KEMAL SMITH Chris HERD TESTER 08/06/21 Diphenhydramine Hcl (BENADRYL ALLERGY) 25 Mg Tablet 1 TAB PO BID for 3 Days, #6 TAB 0 Refills Prov: KEMAL SMITH HERD TESTER 08/06/21 Sulfamethoxazole/Trimethoprim (BACTRIM DS TABLET) 1 Each Tablet 1 TAB PO BID for 7 Days, #14 TAB 0 Refills Prov: KEMAL SMITH HERD TESTER 08/06/21 ZACHKEMAL GERMAN LILLIAN Aug 06, 2021 16:49 WHITNEY NIETO DO Aug 07, 2021 14:06
== END 2021-08-06 17:10 | disposition home or self-care (01) ==
LOC: ER 15:06
DX: L50.9 Urticaria, unspecified (principal); Z88.1 Allergy status to other antibiotic agents; Z88.8 Allergy status to other drugs, medicaments and biological substances
CPT/HCPCS: 99284; J7512; Q0163